=== PATIENT | male | born 1975 | race Caucasian/White ===

== ENCOUNTER 2017-03-24 09:32 | Emergency (ER) | payer MEDICAID ==
[2017-03-24 09:37] VITALS: BP 107/80; PULSE 90; RESP 16; TEMP 97.5; O2SAT 98
[2017-03-24] MEDS ORDERED: CARBAMIDE PEROXIDE 15 ML BOTTLE EACHEAR ONE (10:03)
[2017-03-24] MEDS ORDERED: IBUPROFEN 600 MG TAB PO ONE (10:04)
[2017-03-24] MEDS ORDERED: HYDROCODONE/APAP 5/325 TAB PO ONE (10:05)
--- NOTE | 2017-03-24 10:07 | EDPHY ---
H & P Time Seen by Provider: 03/24/17 09:39 HPI/ROS: CHIEF COMPLAINT: Right ear pain HISTORY OF PRESENT ILLNESS: 41-year-old male presents emergency department complaining of right ear pain that started yesterday. Patient reports the pain is a deep, constant. He reports it is a 5/10. Patient denies nasal congestion , sore throat,, fevers or chills. He denies dizziness or lightheadedness. Patient denies previous ear pain. Patient reports he took Tylenol this morning with no relief. He denies other complaints. Smoking Status: Current every day smoker Physical Exam: General: Alert, nontoxic. ENT: Tympanic membranes obscured with cerumen, external auditory canal, external ear and surrounding soft tissue including over the mastoid unremarkable. Nasopharynx is not injected, there is no rhinorrhea. Oropharynx without erythema or edema. There is no exudate. No tonsillar hypertrophy. No asymmetry. The uvula is midline. No elevation of tongue. There is no hoarseness. No drooling, patient has good control of their oral secretions. No trismus. No stridor. Cardiac: Regular rate and rhythm. Respiratory: Lungs clear to auscultation bilaterally. Neurological: no meningismus. Skin: No rashes. Constitutional: Initial Vital Signs Temperature (C) 36.4 C 03/24/17 09:34 Heart Rate 90 03/24/17 09:34 Respiratory Rate 16 03/24/17 09:34 Blood Pressure 107/80 03/24/17 09:34 O2 Sat (%) 98 03/24/17 09:34 O2 Delivery Mode Room Air Allergies/Adverse Reactions: No Known Allergies Allergy (Unverified 03/24/17 09:33) Home Medications: Medication Instructions Recorded NK [No Known Home Meds] 03/24/17 MDM/Departure - MDM Procedures: Procedure: Cerumen removal. After a physical exam was performed cerumen needed to be removed from the patient's ear canal. The indication of the procedure was cerumen impaction and inability to complete the ear exam. The procedure was performed with an ear curette. The patient tolerated the procedure well. The procedure was performed by myself. Medications Given: Discontinued Medications Hydrocodone Bitart/Acetaminophen ([place] 5/325) 1 tab PO EDNOW ONE Stop: 03/24/17 10:06 Last Admin: 03/24/17 10:16 Dose: 1 tab Carbamide Peroxide (Debrox) 5 drop EACHEAR EDNOW ONE Stop: 03/24/17 10:04 Last Admin: 03/24/17 10:39 Dose: 5 drop Ibuprofen (Motrin) 600 mg PO EDNOW ONE Stop: 03/24/17 10:05 Last Admin: 03/24/17 10:16 Dose: 600 mg - Depart Disposition: Home, Routine, Self-Care Clinical Impression: Impacted cerumen Qualifiers: Laterality: bilateral Qualified Code(s): H61.23 - Impacted cerumen, bilateral Condition: Good Instructions: Cerumen Impaction (ED) Additional Instructions: Use hydrogen peroxide mixed with water to clean your ears a couple times per week. Do not use q-tips. Follow up at [facility] for any return of symptoms. Return to the emergency department for any fevers, increased pain, new symptoms or concerns. Referrals: [facility],. [Clinic] - As per Instructions
== END 2017-03-24 12:27 | disposition home or self-care (01) ==
PROC: F09Z3XZ Cerumen Management Treatment using Cerumen Management Equipment (ICD-10-PCS; principal; 2017-03-24)
DX: H61.23 Impacted cerumen, bilateral (principal); F17.200 Nicotine dependence, unspecified, uncomplicated

== ENCOUNTER 2017-03-26 09:25 | Emergency (ER) | payer MEDICAID ==
--- NOTE | 2017-03-26 10:13 | EDPHY ---
H & P Time Seen by Provider: 03/26/17 09:45 HPI/ROS: CHIEF COMPLAINT: Instability HISTORY OF PRESENT ILLNESS: Patient is a 41-year-old man with a history of cerebral palsy and homelessness and alcoholism who comes to the emergency department complaining of difficulty walking with does not enough sleep. He states that this has been present for about a year. He states that when he does not sleep well enough he feels slightly dizzy and has trouble walking straight. He has not seen his primary physician for this. He does not currently have any symptoms. He has normal strength and sensation. He denies chest pain or shortness of breath. He denies palpitations. Denies any recent fever illness. No paresthesias or numbness. No bowel or bladder abnormalities. REVIEW OF SYSTEMS: Constitutional: denies: chills, fever, recent illness, recent injury EENTM: denies: blurred vision, double vision, nose congestion Respiratory: denies: cough, shortness of breath Cardiac: denies: chest pain, irregular heart rate, lightheadedness, palpitations Gastrointestinal/Abdominal: denies: abdominal pain, diarrhea, nausea, vomiting, blood streaked stools Genitourinary: denies: dysuria, frequency, hematuria, pain Musculoskeletal: See HPI Skin: denies: lesions, rash, jaundice, bruising Neurological: denies: headache, numbness, paresthesia, tingling, dizziness, weakness Hematologic/Lymphatic: denies: blood clots, easy bleeding, easy bruising Immunologic/allergic: denies: HIV/AIDS, transplant EXAM: GENERAL: Well-appearing, well-nourished and in no acute distress. HEAD: Atraumatic, normocephalic. EYES: Pupils equal round and reactive to light, extraocular movements intact, sclera anicteric, conjunctiva are normal. ENT: TMs normal, nares patent, oropharynx clear without exudates. Moist mucous membranes. NECK: Normal range of motion, supple without lymphadenopathy or JVD. LUNGS: Breath sounds clear to auscultation bilaterally and equal. No wheezes rales or rhonchi. HEART: Regular rate and rhythm without murmurs, rubs or gallops. ABDOMEN: Soft, nontender, normoactive bowel sounds. No guarding, no rebound. No masses appreciated. BACK: No CVA tenderness, no spinal tenderness, step-offs or deformities EXTREMITIES: Normal range of motion, no pitting or edema. No clubbing or cyanosis. NEUROLOGICAL: Cranial nerves II through XII grossly intact. Normal speech, normal gait. 5/5 strength, normal movement in all extremities, normal sensation , normal reflexes, normal gait PSYCH: Strange affect, normal mood SKIN: Warm, dry, normal turgor, no visible rashes or lesions. Source: Patient Exam Limitations: No limitations - Medical/Surgical History Hx Asthma: No Hx Chronic Respiratory Disease: No Hx Diabetes: No Hx Cardiac Disease: No Hx Renal Disease: No Hx Cirrhosis: No Hx Alcoholism: No Hx HIV/AIDS: No Hx Splenectomy or Spleen Trauma: No Other PMH: spina bifidaq/chiari surg/spinal surgery - Family History Significant Family History: No pertinent family hx - Social History Smoking Status: Current every day smoker Alcohol Use: Heavy Drug Use: None Constitutional: Initial Vital Signs Temperature (C) 36.7 C 03/26/17 09:30 Heart Rate 88 03/26/17 09:30 Respiratory Rate 20 03/26/17 09:30 Blood Pressure 97/57 L 03/26/17 09:30 O2 Sat (%) 97 03/26/17 09:30 O2 Delivery Mode Room Air Allergies/Adverse Reactions: No Known Allergies Allergy (Unverified 03/24/17 09:33) Home Medications: Medication Instructions Recorded NK [No Known Home Meds] 03/24/17 Medical Decision Making ED Course/Re-evaluation: The patient is currently asymptomatic. We discussed follow-up with his primary physician for more appropriate workup. He agrees with this and is eager to leave. Differential Diagnosis: Partial list of the Differential diagnosis considered include but were not limited to; insomnia, alcoholism, spina bifida and although unlikely based on the history and physical exam, I also considered spinal cord infection, tumor, stroke, vertigo. I discussed these differential diagnoses and the plan with the patient as well as the usual and expected course. The patient understands that the diagnosis is provisional and that in medicine we are not always correct and that further workup is often warranted. Usual and customary warnings were given. All of the patient's questions were answered. The patient was instructed to return to the emergency department should the symptoms at all worsen or return, otherwise to followup with the physician as we discussed. Departure - Departure Disposition: Home, Routine, Self-Care Clinical Impression: Alcoholism Condition: Fair Instructions: Alcohol Use Disorder (ED) Referrals: [facility] [Other] - As per Instructions
[2017-03-26 10:19] VITALS: BP 97/57; PULSE 88; RESP 20; TEMP 98.1; O2SAT 97
== END 2017-03-26 09:55 | disposition home or self-care (01) ==
DX: F10.20 Alcohol dependence, uncomplicated (principal); F17.200 Nicotine dependence, unspecified, uncomplicated

== ENCOUNTER 2017-08-10 09:58 | Emergency (ER) | payer MEDICAID, OTHER ==
[~2017-08-10 09:58] MED LIST: predniSONE 20 MG TAB PO SCH
[2017-08-10 10:04] VITALS: RESP 18
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
[2017-08-10 11:17] VITALS: BP 111/65; PULSE 76; TEMP 97.5; O2SAT 98
== END 2017-08-10 11:23 | disposition home or self-care (01) ==
DX: Z76.0 Encounter for issue of repeat prescription (principal); F17.200 Nicotine dependence, unspecified, uncomplicated
CPT/HCPCS: J7512

== ENCOUNTER 2017-09-14 23:37 | Observation (INO) | payer MEDICAID ==
[2017-09-14] MEDS ORDERED: NS 1,000 ML IV ONE (23:41)
--- NOTE | 2017-09-14 23:44 | EDPHY ---
H & P HPI/ROS: HPI CHIEF COMPLAINT: Seizure at [facility]. HISTORY OF PRESENT ILLNESS: This patient is a 42-year-old male, history of spina bifida, states he is not take any daily medications, presents emergency room after he had a 2 minutes witnessed generalized tonic-clonic seizure at the [facility]. 911 was called. EMS found her to be postictal. Also incontinent of urine and stool. Upon arrival to the emergency room the patient is alert and oriented GCS 15, he did fall. He has been placed in a cervical collar. His complaint is pain all over. Additionally complains of a headache. He denies chest pain. EMS reports that he drinks alcohol. Last drink earlier today. Reported to me by EMS that he has never had a seizure. Past Medical History: Spina bifida, chiari, ?Alcoholism. Past Surgical History: No recent surgery Social History: Alcohol use. Homeless. Denies illicit drugs. Family History: Noncontributory ROS REVIEW OF SYSTEMS: A comprehensive 10 point review of systems is otherwise negative aside from elements mentioned in the history of present illness. Exam Constitutional alert and oriented, GCS 15, no signs of trauma on exam, triage nursing summary reviewed, vital signs reviewed, awake/alert. Eyes normal conjunctivae and sclera, EOMI, PERRLA. HENT head/neck in cervical collar no midline cervical spine pain, normal inspection, atraumatic, moist mucus membranes, no epistaxis, neck supple/ no meningismus, no raccoon eyes. Respiratory clear to auscultation bilaterally, normal breath sounds, no respiratory distress, no wheezing. Cardiovascular rate normal, regular rhythm, no murmur, no edema, distal pulses normal. Gastrointestinal soft, non-tender, no rebound, no guarding, normal bowel sounds, no distension, no pulsatile mass. Genitourinary no CVA tenderness. Musculoskeletal no midline vertebral tenderness, full range of motion, no calf swelling, no tenderness of extremities, no meningismus, good pulses, neurovascularly intact. Skin pink, warm, & dry, no rash, skin atraumatic. Neurologic awake, alert and oriented x 3, AAOx3, moves all 4 extremities equally, motor intact, sensory intact, CN II-XII intact, normal cerebellar, normal vision, normal speech. Incontinent of urine and stool. Psychiatric normal mood/affect. Heme/Lymph/Immune no lymphadenopathy. Differential Diagnosis: Includes but is not limited to in a particular order seizure, breakthrough seizure, alcohol withdrawal, alcohol intoxication, electrolyte disturbance, intracranial bleed, traumatic injury of the skull neck from falling after seizure. Medical Decision Making: Plan for this patient IV establishment, IV fluid bolus , check basic blood work, CT head, CT cervical spine, check drug screen, check alcohol level. Re-evaluate. Monitor closely for further seizure activity. Re-evaluation: CT scan of the Head w/o. The results of the study are this shows a right occipital skull fracture. Additionally most likely Chiari malformation. The study was read by Dr. Junior I viewed the images myself on the PACS system. ED CT cervical spine without contrast shows: Negative for acute fracture. 1225AM: Spoke with Trauma surgery Dr. Jaquez agrees to admit this patient for observation overnight for right occipital skull fracture. No bleed on the CT scan. 1251AM: Additionally I spoke with Dr. Jesus Cantu with Neurosurgery about this patient skull fracture no acute neurosurgical intervention needed this time. 1252: I do feel this patient should be admitted for observation overnight as the patient is homeless has chronic medical problems including spina bifida, QR malformation low neurological function and now has a right occipital skull fracture after seizure. It is unclear to me exactly what caused the seizure it was thought that this was due to alcohol withdrawal. However the patient does not appear to be in alcohol withdrawal. He is not tachycardic is not tremulous he is not hypertensive. Alcohol level 0. Will observe overnight. I have cleared his cervical spine collar he not altered and he has no acute fracture on his cervical spine. 0104: Additionally I consult the hospitalist service Dr. Islas For Consult for Management/Seizure workup. EKG interpretation by me on record in [employer] system. Impression time of EKG 0013. Sinus tachycardia rate of 109. No acute ischemic change appreciated. ED x-ray chest one view: Negative for acute cardiopulmonary disease. Source: Patient, EMS - Medical/Surgical History Hx Asthma: No Hx Chronic Respiratory Disease: No Hx Diabetes: No Hx Cardiac Disease: No Hx Renal Disease: No Hx Cirrhosis: No Hx Alcoholism: No Hx HIV/AIDS: No Hx Splenectomy or Spleen Trauma: No Other PMH: spina bifidaq/chiari surg/spinal surgery - Social History Smoking Status: Current every day smoker Constitutional: Initial Vital Signs Temperature (C) 36.7 C 11/18/17 23:42 Heart Rate 113 H 09/14/17 23:42 Respiratory Rate 17 09/14/17 23:42 Blood Pressure 106/77 09/14/17 23:42 O2 Sat (%) 95 09/14/17 23:42 O2 Delivery Mode Room Air Allergies/Adverse Reactions: No Known Allergies Allergy (Verified 08/10/17 10:01) Home Medications: Medication Instructions Recorded NK [No Known Home Meds] 09/15/17 Medical Decision Making - Diagnostics Imaging Results: Imaging Impressions Chest X-Ray 09/14/17 23:41 Impression: No evidence for acute cardiopulmonary abnormality. - Data Points Laboratory Results: Laboratory Results 09/14/17 23:30 09/14/17 23:30 Medications Given: Discontinued Medications Hydrocodone Bitart/Acetaminophen ([place] 5/325) 1 - 2 tab PO Q6HRS PRN PRN Reason: Pain, Moderate Able to Take PO Stop: 09/25/17 01:09 Last Admin: 09/15/17 01:26 Dose: 2 tab Hydromorphone HCl (Dilaudid) 4 mg PO Q4HRS PRN PRN Reason: Pain, Severe Able to Take PO Stop: 09/25/17 08:59 Last Admin: 09/15/17 09:26 Dose: 4 mg Sodium Chloride (Ns) 1,000 mls @ 0 mls/hr IV ONCE ONE; Wide Open PRN Reason: Protocol Stop: 09/14/17 23:42 Last Admin: 09/15/17 00:14 Dose: 1,000 mls Thiamine HCl 500 mg/ Sodium (Chloride) 105 mls @ 210 mls/hr IV DAILY AMANUEL Stop: 09/18/17 03:29 Last Admin: 09/15/17 09:29 Dose: Not Given Lorazepam (Ativan) 1 mg PO ONCE ONE Stop: 09/15/17 01:10 Last Admin: 09/15/17 01:20 Dose: 1 mg Lorazepam (Ativan) 1 - 2 mg PO Q4 PRN PRN Reason: Anxiety, Able to Take PO Stop: 03/14/18 01:12 Last Admin: 09/15/17 05:41 Dose: 1 mg Nicotine Polacrilex (Nicorette) 2 mg B Q1 PRN PRN Reason: NICOTINE WITHDRAWAL Stop: 03/14/18 01:50 Last Admin: 09/15/17 09:27 Dose: 2 mg Senna/Docusate Sodium (Senokot-S) 1 tab PO BID AMANUEL Stop: 03/14/18 09:14 Last Admin: 09/15/17 09:29 Dose: Not Given Departure - Departure Disposition: [facility] Clinical Impression: Seizure Skull fracture Qualifiers: Encounter type: initial encounter Skull bone/location: occipital bone Fracture type: closed Occipital fracture type: unspecified fracture of occiput Laterality : right Qualified Code(s): S02.119A - Unspecified fracture of occiput, initial encounter for closed fracture Condition: Fair
[2017-09-14 23:50] LABS: % IMMATURE GRANULYOCYTES 0.8 % (0.0-1.1); ABSOLUTE IMMATURE GRANULOCYTES 0.12 10^3/uL (0.00-0.10); ADD DIFF? NO; ADD MORPH? NO; ADD SCAN? NO; ATYPICAL LYMPHOCYTE FLAG 10 (0-99); FRAGMENT RBC FLAG 0 (0-99); HEMATOCRIT 39.9 % (40.0-51.0); HEMOGLOBIN 13.6 g/dL (13.7-17.5); LEFT SHIFT FLG 0 (0-99); LIPEMIA HEMOLYSIS FLAG 90 (0-99); MEAN CELL HEMOGLOBIN 31.1 pg (27.9-34.1); MEAN CELL HEMOGLOBIN CONCENTR. 34.1 g/dL (32.4-36.7); MEAN CELL VOLUME 91.3 fL (81.5-99.8); MEAN PLATELET VOLUME 11.2 fL (8.7-11.7); PLATELET CLUMPS FLAG 10 (0-99); PLATELET COUNT 241 10^3/uL (150-400); RED BLOOD CELL COUNT 4.37 10^6/uL (4.40-6.38); RED CELL DISTRIBUTION WIDTH 12.6 % (11.5-15.2)
[2017-09-15 00:13] LABS: ANION GAP 11 mEq/L (8-16); CALCIUM 9.6 mg/dL (8.5-10.4); CARBON DIOXIDE 27 mEq/l (22-31); CHLORIDE 105 mEq/L (97-110); CREATININE 0.8 mg/dL (0.7-1.3); ETHANOL SERUM < 10 mg/dL (0-10); GLOMERULAR FILTRATION RATE > 60; GLUCOSE 108 mg/dL (70-100); POTASSIUM 4.1 mEq/L (3.5-5.2); SODIUM 143 mEq/L (134-144)
--- NOTE | 2017-09-15 00:15 | CPEKG ---
Heart Rate: 109 RR Interval: 550 P-R Interval: 136 QRSD Interval: 96 QT Interval: 324 QTC Interval: 437 P [place]: 77 QRS [place]: 91 T Wave [place]: 49 EKG Severity - BORDERLINE ECG - EKG Impression: SINUS TACHYCARDIA EKG Impression: BORDERLINE RIGHT AXIS DEVIATION EKG Impression: LOW VOLTAGE IN FRONTAL LEADS Electronically Signed By: Jonathan Morales 15-Sep-2017 07:06:24
[2017-09-15 00:18] LABS: COLOR YELLOW; LEUKOCYTE ESTERASE,URINE NEGATIVE (NEGATIVE); NITRITE,URINE NEGATIVE (NEGATIVE)
[2017-09-15 00:24] LABS: TROPONIN I < 0.012 ng/mL (0.000-0.034)
[2017-09-15] MEDS ORDERED: LORazepam 1 MG TAB PO ONE (01:09)
[2017-09-15] MEDS ORDERED: HYDROCODONE/APAP 5/325 TAB PO PRN (01:10)
[2017-09-15] MEDS ORDERED: ACETAMINOPHEN 325 MG TAB PO PRN (01:10)
[2017-09-15] MEDS ORDERED: ONDANSETRON DISINTEGRATING 4 MG TAB PO PRN (01:10)
[2017-09-15] MEDS ORDERED: LORazepam 1 MG TAB PO PRN ×2 (01:13→01:29)
[2017-09-15] MEDS ORDERED: LORazepam 2 MG/ML INJ ONE (01:15)
[2017-09-15] MEDS ORDERED: LORazepam 1 MG TAB ONE (01:19)
--- NOTE | 2017-09-15 03:15 | GHP ---
[f rep st] PREOP HISTORY AND PHYSICAL DATE OF ADMISSION: 09/15/2017 REASON FOR ADMISSION: Skull fracture. HISTORY OF PRESENT ILLNESS: 42-year-old homeless male with a significant history for alcohol abuse, brought in by EMS after a witnessed seizure activity at the [facility] with subsequent fall onto his occiput. The patient was noted to be incontinent of stool and feces. On ED arrival he was found to be alert with generalized bodily complaints. No further seizure activity was noted nor treated. Workup disclosed a nondisplaced occipital skull fracture with an old Chiari malformation. Per review of ED records, he has a notable history for cerebral palsy as well. The patient denies any prior history of seizure disorder. He reports not having drank for multiple days. His alcohol level was negligible on arrival. There are no documented reports of [facility], through his 3 prior visits over the past year. PAST MEDICAL HISTORY: Cerebral palsy per hospital records, alcohol abuse. PAST SURGICAL HISTORY: Laparoscopic Guy fundoplication, spina bifida repair , prior craniotomy. MEDICATIONS: Denies. ALLERGIES: Denies. SOCIAL HISTORY: Notable for alcohol. He denies the use of illicit drugs. He reports that he worked at [employer] at 1 point. REVIEW OF SYSTEMS: Negative on a 10-point review other than above current complaints. PHYSICAL EXAMINATION: VITAL SIGNS: Temperature 36.7, blood pressure 110/80, pulse 98, respirations 18. GENERAL: The patient is alert, tangential, otherwise polite enough. HEENT: Notable diffuse occipital skull discomfort without visible deformity. Pupils are equally round and reactive to light and accommodation. Extraocular muscles are intact. Tympanic membranes are clear bilaterally. Nares are clear bilaterally. No facial step-offs, deformities, or tenderness. Cervical spine nontender. Trachea midline without crepitus. HEART: Regular without murmurs. LUNGS: Clear bilaterally. ABDOMEN: Soft. Well-healed laparoscopic trocar site incisions, otherwise nontender. PELVIS: Nontender. Normal bilateral upper and lower extremities without step-offs, deformities, or abrasions. Well-healed lumbar spine incision. NEUROLOGIC: Alert. Speech with normal mahi. LABORATORIES: White count 15, hemoglobin 14, platelets 240. Electrolytes within reference range. Urinalysis normal. Tox screen negative. Alcohol normal. CT of the head and neck with a nondisplaced occipital fracture. No intracranial bleed present. Chiari malformation present with old surgical changes. No acute spinal fractures. Old C7 compression fracture present. IMPRESSION: 1. Homeless male with a significant history for alcohol abuse. 2. Witnessed seizure without known antecedent seizure history. 3. Nondisplaced occipital skull fracture. PLAN: 1. The patient is being admitted for overnight observation. Given his lack of prior history of a known seizure disorder, and the patient is currently not intoxicated, will request hospitalist consultation regarding any further necessary seizure workup measures. 2. Images were reviewed by neurosurgical service with no further specific recommendation for his occipital skull fracture. He will assess in am. /[id number]/MODL MTDD
[2017-09-15] MEDS ORDERED: NS 1,000 ML IV SCH (03:30)
--- NOTE | 2017-09-15 05:20 | GCON ---
[f rep st] CONSULTATION Date of consultation: 09/15/2017 PCP: Patient is without. REASON FOR CONSULTATION: Seizures. SOURCE: Patient is minimally cooperative with interview. Does not want to be asked any questions and rolls over, and goes back to bed. Remainder of the information obtained by a discussion with ED provider and review of EMR. CHIEF COMPLAINT: Seizure and fall. HISTORY OF PRESENT ILLNESS: This is a 42-year-old gentleman with a past medical history of alcohol abuse, spina bifida, and history of Chiari malformation with repair, who presents to the emergency department via [facility] after patient had a witnessed tonic-clonic seizure, followed by a fall where he hit his head. The patient's seizure activity is reported to have lasted approximately 2 minutes. Patient denies any previous history of seizure and documentation also without notation of this. The patient denies any pain and then rolls over and tries to go back to bed, and does not cooperate any further. On the medical floor, patient refused to have any vital signs checked, monitors placed, or participate in admission process at all. He had demanded from SHANA cardozo and Kierra, which he received and went to sleep. REVIEW OF SYSTEMS: Unable to obtain secondary to patient's lack of cooperation. ALLERGIES: No known drug allergies. HOME MEDICATIONS: None. PAST MEDICAL HISTORY: Significant for alcohol disorder, spina bifida, Chiari malformation. PAST SURGICAL HISTORY: Significant for a lap Guy fundoplication, spina bifida repair, and a prior craniotomy for Chiari malformation repair. FAMILY HISTORY: Unable to obtain secondary to patient's lack of cooperation. SOCIAL HISTORY: The patient does tell me that he did have a little bit to drink , a sip of alcohol, on day prior to admission, but nothing compared to what he takes on a daily basis. He is residing currently in a homeless [facility]. He denied any illicit drugs to previous provider. PHYSICAL EXAM: VITALS: On arrival, blood pressure 106/77, heart rate 113, respiratory rate 17, O2 saturation 95% on room air, temperature of 36.7. Current blood pressure 110/82, heart rate 114, respiratory rate 16, O2 saturation 97% on room air. GENERAL: No acute distress. Patient appears older than stated age. He is disheveled and sleeping. Opens 1 eye and rolls over, and goes to sleep. HEAD: Normocephalic, atraumatic-appearing. ENT: Mucous membranes appear slightly dry. No nasal discharge. NECK: Supple. Trachea midline. CV: Regular rate and rhythm. No murmurs, rubs, or gallops appreciated. RESPIRATORY: Unlabored breathing. Lungs are clear to auscultation bilaterally. Patient does have a persistent nonproductive cough during the interview. ABDOMEN: Positive bowel sounds. Soft, nontender to palpation. No rebound, guarding, or masses appreciated. : No apparent suprapubic tenderness to palpation. No Louie in place. MUSCULOSKELETAL: Limited secondary to patient's cooperation. He does wiggle his lower extremities and hands. NEUROLOGIC: Cranial nerves 2 through 12 unable to assess secondary to patient's cooperation, but denies any sensory deficits. PSYCH: Patient with limited cooperativity, , but is not currently agitated or restless. He was sleeping. LABORATORY STUDIES: 1. WBC is 15.5, H and H 13.6 and 39.9, platelet count is 241, MCV 91.3. 2. Sodium is 143, potassium 4.1, chloride 105, CO2 is 27, BUN 14, creatinine is 0.8, GFR greater than 60, glucose 108, calcium 9.6. Troponin is negative. UA: Specific gravity 1.014, pH of 6, negative otherwise. 3. Alcohol level less than 10. Otherwise, urine tox is negative. 4. Chest x-ray: Image reviewed myself. Report is pending. Nothing acute. 5. CT head, without contrast, showing postsurgical changes from prior Chiari malformation surgery with defect in the cerebral bone at the foramen magnum and cerebellum, extending below the level of foramen magnum. 6. Nondisplaced fracture of the right cerebral bone without any evidence of intracranial hemorrhage. 7. Possible fullness in the pineal region and midbrain, uncertain clinical significance. 8. CT cervical spine. Negative for any evidence of acute cervical spine fracture, incomplete posterior arch of C1 that could be due to congenital or postsurgical old mild compression fracture at C7. 9. Unable to pull up EKG on Trace Master. Preliminary report showing sinus tachycardia, borderline right axis deviation, low voltage in frontal leads. ASSESSMENT/PLAN: A 42-year-old gentleman with past medical history significant for alcohol dependence, Chiari malformation, status post repair, and history of spina bifida, status post repair, who presents to the emergency department via EMS following seizure and a fall. 1. Seizure. Definitely concerning for alcohol withdrawal. Patient reports that he has had significantly decreased amount of alcohol in the last several days, with last intake being "a sip" the day prior to arrival. The patient's alcohol level is negative. The patient will be placed on CIWA protocols with seizure prophylaxis. We will not order EEG at this time, as patient is being very uncooperative and we will plan to have day doctor discuss with the patient , as he may not be cooperative with the EEG order either. 2. History of fall. On bed alarms and fall precautions. 3. Occipital skull fracture, nonoperative. We will continue to monitor for any changes in symptoms. 4. Alcohol withdrawal. Patient placed on CIWA protocol and p.r.n. Ativan. The patient's vital signs at this time are stable. 5. Old C7 compression fracture. 6. Systemic inflammatory response syndrome and leukocytosis, likely related to patient's recent events with seizure and fall. We will plan to give IV fluid hydration, if patient will allow, which at this time, he is not, and repeat a CBC and CMP in the morning, if the patient will allow. 7. Anemia, likely some component of macrocytosis with a history of chronic alcohol dependence. Patient will be given thiamine. No evidence of active bleeding at this time. 8. Fluid, electrolytes, and nutrition. Diet as tolerated. Electrolyte replacement p.r.n. 9. Cor. Full. DISPOSITION: Patient admitted to observation on medical floor, as per Dr. Jaquez. CODE STATUS: Patient not willing to discuss at this time. We will leave as full. Thank you for this consultation. We will continue to follow along with you and further evaluate the patient in the morning, and see if he will be any more cooperative and consider evaluation, as he denies any previous history of withdrawal seizures. /[id number]/MODL MTDD
[2017-09-15] MEDS: THIAMINE HCL 500 MG in NS 100 ML IV SCH ×2 (05:42→09:29)
[2017-09-15] MEDS: NICOTINE POLACRILEX 2 MG GUM B PRN ×3 (05:47→09:27)
[2017-09-15 07:46] VITALS: BP 116/81; PULSE 106; RESP 16; TEMP 98.6; O2SAT 97
--- NOTE | 2017-09-15 08:50 | SOAPPROG ---
SOAP Progress Note Assessment/Plan: Assessment: 42 yo M with right occipital non-displaced skull fracture after seizure Plan: full consult dictated. No treatment needed for skull fracture will sign off , please call with neuro changes patient does not need follow up appointment seen by DR Cantu 09/15/17 08:48 Subjective: see dictated consult Objective: Vital Signs Temp Pulse Resp BP Pulse Ox 37.0 C 106 H 16 116/81 H 97 09/15/17 07:42 09/15/17 07:42 09/15/17 07:42 09/15/17 07:42 09/15/17 07:42 09/14/17 09/15/17 09/16/17 05:59 05:59 05:59 Intake Total 1165 Balance 1165 GCS-15 ICD10 Worksheet Patient Problems: Problems Problem Status Onset Seizure Acute Skull fracture Acute
[2017-09-15] MEDS ORDERED: HYDROmorphONE/DILAUDID 4 MG TAB PO PRN (09:00)
--- NOTE | 2017-09-15 09:09 | TRAUMAPN ---
- Problem/Surgery Performed (1) Syncope and collapse Assessment/Plan: bystanders report a seizure/patient currently denying drug or alcohol use (drug screen was negative) patient reports feeling ill with a headache prior to the event-other causes of syncope should be considered (2) History of Chiari malformation Assessment/Plan: prior craniotomy at [facility] (3) Spina bifida Qualifiers: Spinal region: unspecified (4) Skull fracture Assessment/Plan: patient with uncomplicated skull fracture/neurosurgery consult pending Qualifiers: Encounter type: initial encounter Skull bone/location: occipital bone Fracture type: closed Occipital fracture type: unspecified fracture of occiput Laterality: right Qualified Code(s): S02.119A - Unspecified fracture of occiput, initial encounter for closed fracture Assessment/Plan: s/p fall with uncomplicated skull fracture/syncope vs. seizure as eitiology no other injury identified on tertiary exam Hospitalist consult appreciated Subjective: c/o headache prior to fall yesterday/has never had a seizure main complaint today is headache Objective: Vital Signs Temp Pulse Resp BP Pulse Ox 37.0 C 106 H 16 116/81 H 97 09/15/17 07:42 09/15/17 07:42 09/15/17 07:42 09/15/17 07:42 09/15/17 07:42 09/14/17 09/15/17 09/16/17 05:59 05:59 05:59 Intake Total 1165 Balance 1165 - C-Spine Clearance Cervical Spine Cleared: Yes Provider who Cleared Cervical Spine: Leonid Physical Exam - Physical Exam General Appearance: moderate distress, other (thin chronically ill appearing male sitting on the floor of his room with his legs crossed) EENT: PERRL/EOMI Neck: non-tender, full range of motion, supple Respiratory: chest non-tender, lungs clear, normal breath sounds Cardiac/Chest: regular rate, rhythm Abdomen: normal bowel sounds, non-tender, soft Male Genitalia: deferred Rectal: deferred Back: Normal inspection Skin: warm/dry Extremities: normal range of motion, non-tender Neuro/Psych: oriented x 3, other (agitated/angry/does not make eye contact during conversation)
[2017-09-15] MEDS ORDERED: SENNOSIDES/DOCUSATE SODIUM TAB PO SCH (09:15)
--- NOTE | 2017-09-15 09:21 | GCON ---
[f rep st] CONSULTATION NEUROSURGICAL CONSULTATION CHIEF COMPLAINT: Headache. HISTORY OF PRESENT ILLNESS: Mr. Mauro is a 42-year-old male with a history of significant alcohol abuse. He had a witnessed seizure at a homeless half-way and a subsequent fall. He was evaluated in the emergency department and a head CT showed a right occipital skull fracture and neurosurgical consultation was requested. The patient currently denies any headaches. He denies any nausea or vomiting. Most of his medical history comes from the patient's chart as he is being verbally aggressive with the nurses this morning and noncompliant. PAST MEDICAL HISTORY: 1. Cerebral palsy. 2. Alcohol abuse. PAST SURGICAL HISTORY: 1. Chiari decompression. 2. Spina bifida repair. 3. Laparoscopic Guy fundoplication. MEDICATIONS PRIOR TO ADMISSION: None. ALLERGIES: No known drug allergies. FAMILY HISTORY: Unobtainable. SOCIAL HISTORY: The patient is homeless. He has a history of alcohol abuse. Denies drug use. REVIEW OF SYSTEMS: Negative. PHYSICAL EXAMINATION: GENERAL: Patient is a 42-year-old male sitting on the edge of the bed. He is agitated and verbally abusive toward the nurses. HEENT : Pupils equal, round, reactive to light. Extraocular motions are intact. There is no evidence of facial droop. EXTREMITIES: He moves all extremities x4. NEUROLOGIC: His sensation is grossly intact. Unable to test deep tendon reflexes because the patient is noncompliant. DIAGNOSTIC STUDIES: The head CT without contrast shows a nondisplaced right occipital skull fracture. There is no evidence of acute hemorrhage. There are postoperative changes from his previous Chiari decompression. IMPRESSION: This is a 42-year-old male with a witnessed seizure and has a right occipital nondisplaced linear skull fracture. He is neurologically intact. PLAN: The above is discussed in detail with the patient. At this point in time , there is no further treatment required for his nondisplaced skull fracture. He has no evidence of any acute hemorrhage. He can be discharged when he is cleared by trauma. He does not need to return for a followup appointment. At this point in time, we will sign off. Please call with any neurological changes. NEUROSURGERY STAFF: I have seen the patient and agree with the above note. He does not need any further neurosurgical followup. Terry Cantu MD [facility] /[id number]/MODL MTDD
--- NOTE | 2017-09-15 11:31 | ASMTCMCOM ---
CM Note CM Note Notes: Patient left AMA. [facility] bed reserved for him and shoes given from Case Management closet. Encouraged patient to stay, but he refused. Date Signed: 09/15/2017 11:30 AM Electronically Signed By:Winifred Mccullough RN
--- NOTE | 2017-09-15 12:56 | ASDISCHSUM ---
Discharge Information Plan Status:Homeless/Half-Way Medically Cleared to Leave: Discharge Date:09/15/2017 11:20 AM CM D/C Disposition:Against Medical Advice ADT D/C Disposition:Against Medical Advice Projected Discharge Date:09/15/2017 11:20 AM Transportation at D/C:Self Discharge Delay Reason: Follow-Up Date:09/15/2017 11:20 AM Discharge Slot: Final Diagnosis: Placement Information Patient Contact Information Contact Name:CARLYLE Relationship:Other Address: Work Phone: [facility] Phone: State/Zip Code: Email: Financial Information Financial Class: Primary Plan Desc:[employer] Primary Plan Number:[id number] Secondary Plan Desc: Secondary Plan Number: Assessment Information [facility] CM Progress Note CM Note CM Note Notes: Patient left AMA. Half-Way bed reserved for him and shoes given from Case Management closet. Encouraged patient to stay, but he refused. Date Signed: 09/15/2017 11:30 AM Electronically Signed By:Winifred Mccullough RN Intervention Information
--- NOTE | 2017-09-15 14:35 | PDDCSUM ---
Discharge Summary Discharge Summary: This is a discharge against medical advice, patient left prior to being seen by this provider. 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
== END 2017-09-15 11:20 | disposition left against medical advice (07) ==
LOC: EDUNIT# → F3N 09-15 01:35
PROVIDERS: ADMIT Surgery; ATTEND Surgery
DX: F10.239 Alcohol dependence with withdrawal, unspecified (principal); R56.9 Unspecified convulsions; S02.119A Unspecified fracture of occiput, initial encounter for closed fracture; M48.52XD Collapsed vertebra, not elsewhere classified, cervical region, subsequent encounter for fracture with routine healing; D64.9 Anemia, unspecified; Z59.0 Homelessness
CPT/HCPCS: 70450; 71010; 72125; 92523; 93005; 96360; 97161; 97165; 99285; G0378; 80305; G0480; J2060; J3411

== ENCOUNTER 2017-09-16 00:19 | Inpatient (IN) | payer MEDICAID ==
[2017-09-16] MEDS ORDERED: NS 1,000 ML IV ONE (00:36)
[2017-09-16 00:43] VITALS: RESP 18
--- NOTE | 2017-09-16 00:43 | EDPHY ---
H & P HPI/ROS: HPI CHIEF COMPLAINT: Headache, abdominal pain, confusion, generalized weakness HISTORY OF PRESENT ILLNESS: This patient is a 42-year-old male, who I in fact saw yesterday after he had a witnessed seizure at the homeless correction and sustained an occipital skull fracture. He was admitted to the hospital under the trauma service he subsequently left against medical advice at some point today. He now presents back from the homeless correction by EMS. They were initially called for possible foreign body ingestion. Reported that he may have ingested a "battery powered snake." However the patient cannot confirm this. He states when I asked him did he swallow anything he goes "I do not know "when I specifically asked him about of battery or battery powered snake he goes "I do not know" However the patient continues to have a multitude of complaints which includes headache, abdominal pain, shortness of breath. Of note here in the emergency room is very poor historian. He appears dehydrated. He denies drinking alcohol doing drugs this evening. His main complaint is a headache and abdominal pain. Past Medical History: Cerebral palsy, spina bifida, Arnold-Chiari malformation , recent hospitalization for Occipital Skull Fracture. Past Surgical History: Arnold-Chairi Malformation. Cranial surgery, neck surgery. Abdominal Surgery (epigastric region with clips) Unsure what abdominal sx. Social History: Homeless, resides at homeless correction. History of alcohol use. Family History: Noncontributory ROS REVIEW OF SYSTEMS: A comprehensive 10 point review of systems is otherwise negative aside from elements mentioned in the history of present illness. Exam Constitutional appears dehydrated, chronically ill, thin-appearing triage nursing summary reviewed, vital signs reviewed, awake/alert. Eyes normal conjunctivae and sclera, EOMI, PERRLA. . Discharge bilateral medial canthus of his eyes. Conjunctiva is injected red. HENT normal inspection, atraumatic, moist mucus membranes, no epistaxis, neck supple/ no meningismus, no raccoon eyes. Respiratory clear to auscultation bilaterally, normal breath sounds, no respiratory distress, no wheezing. Cardiovascular rate normal, regular rhythm, no murmur, no edema, distal pulses normal. Gastrointestinal soft, non-tender, no rebound, no guarding, normal bowel sounds, no distension, no pulsatile mass. Genitourinary no CVA tenderness. Musculoskeletal no midline vertebral tenderness, full range of motion, no calf swelling, no tenderness of extremities, no meningismus, good pulses, neurovascularly intact. Skin pink, warm, & dry, no rash, skin atraumatic. Neurologic awake, alert and oriented x 3, AAOx3, moves all 4 extremities equally, motor intact, sensory intact, CN II-XII intact, normal cerebellar, normal vision, normal speech. Psychiatric normal mood/affect. Heme/Lymph/Immune no lymphadenopathy. Differential Diagnosis: Includes but is not limited to in a particular order subdural, intracranial bleed, epidural, electrolyte disturbance, acute drug intoxication, alcohol intoxication, cardiac arrhythmia Medical Decision Making: Plan for this patient CT head without contrast given headache and recent skull fracture to Evaluate for a subdural epidural. Additionally will obtain x-rays of his chest and and KUB of his abdomen make sure there is no foreign body specifically a battery powered snake or a battery ingestion. Or any other foreign body. Check electrolytes. Gentle IV hydration. Alcohol level, drug screen. EKG. Re-evaluation: CT scan of the head without IV contrast The results of the study are negative for acute bleed. Stable occipital fracture. The study was read by Dr. Mauro. I viewed the images myself on the PACS system. EKG interpretation by me on record in [facility] system. Impression time of EKG 1:20 a.m., sinus rhythm rate of 98 I do not appreciate any acute ischemia on this EKG. This EKG was performed without any chest pain or shortness of breath. 0133AM: X-ray and KUB are reviewed. This shows no evidence of foreign body. Normal bowel gas pattern. Specifically I do not appreciate a battery or other radiopaque foreign body. There does appear to be surgical clips the epigastric region overlying the gastric bubble. 0634: Patient is slept here throughout the evening. He has no complaints at this time I did re-evaluate him. He ambulated well to the bathroom. His workup for ingested foreign bodies unremarkable. X-rays have been reviewed I do not appreciate foreign body. Blood work is reassuring. He had a repeat CT scan of his head for trauma. I do not appreciate any new bleed. 0644: Patient up ambulating to the bathroom with steady gait. He has no focal medical complaints at this time. He slept most of the night in the emergency room. Vital signs are stable. Workup has been reviewed. I have answered all his questions. He safe for discharge to a correction. Source: Patient, EMS - Medical/Surgical History Hx Asthma: No Hx Chronic Respiratory Disease: No Hx Diabetes: No Hx Cardiac Disease: No Hx Renal Disease: No Hx Cirrhosis: No Hx Alcoholism: No Hx HIV/AIDS: No Hx Splenectomy or Spleen Trauma: No Other PMH: spina bifidaq/chiari surg/spinal surgery - Social History Smoking Status: Current every day smoker Constitutional: Initial Vital Signs Temperature (C) 36.8 C 09/16/17 00:39 Heart Rate 89 09/16/17 00:39 Respiratory Rate 18 09/16/17 00:39 Blood Pressure 112/70 09/16/17 00:39 O2 Sat (%) 94 09/16/17 00:39 O2 Delivery Mode Room Air Allergies/Adverse Reactions: No Known Allergies Allergy (Verified 08/10/17 10:01) Home Medications: Medication Instructions Recorded NK [No Known Home Meds] 09/15/17 Medical Decision Making - Data Points Laboratory Results: Laboratory Results 09/16/17 00:43 09/16/17 00:43 09/16/17 09/16/17 09/16/17 00:43 00:43 00:43 WBC 10.79 10^3/uL H 10^3/uL (3.80-9.50) RBC 4.44 10^6/uL 10^6/uL (4.40-6.38) Hgb 13.9 g/dL g/dL (13.7-17.5) POC Hgb Hct 40.9 % % (40.0-51.0) POC Hct MCV 92.1 fL fL (81.5-99.8) MCH 31.3 pg pg (27.9-34.1) MCHC 34.0 g/dL g/dL (32.4-36.7) RDW 12.5 % % (11.5-15.2) Plt Count 206 10^3/uL 10^3/uL (150-400) MPV 11.5 fL fL (8.7-11.7) Neut % (Auto) 64.5 % % (39.3-74.2) Lymph % (Auto) 23.4 % % (15.0-45.0) [place] % (Auto) 7.1 % % (4.5-13.0) Eos % (Auto) 3.2 % % (0.6-7.6) Baso % (Auto) 0.9 % % (0.3-1.7) Nucleat RBC Rel Count 0.0 % % (0.0-0.2) Absolute Neuts (auto) 6.94 10^3/uL H 10^3/uL (1.70-6.50) Absolute Lymphs (auto) 2.53 10^3/uL 10^3/uL (1.00-3.00) Absolute Monos (auto) 0.77 10^3/uL 10^3/uL (0.30-0.80) Absolute Eos (auto) 0.35 10^3/uL 10^3/uL (0.03-0.40) Absolute Basos (auto) 0.10 10^3/uL 10^3/uL (0.02-0.10) Absolute Nucleated RBC 0.00 10^3/uL 10^3/uL (0-0.01) Immature Gran % 0.9 % % (0.0-1.1) Immature Gran # 0.10 10^3/uL 10^3/uL (0.00-0.10) PT 13.6 SEC SEC (12.0-15.0) INR 1.05 (0.83-1.16) APTT 30.2 SEC SEC (23.0-38.0) VBG Lactic Acid POC Sodium Sodium 146 mEq/L H mEq/L (134-144) POC Potassium Potassium 4.4 mEq/L mEq/L (3.5-5.2) POC Chloride Chloride 107 mEq/L mEq/L (97-110) Carbon Dioxide 27 mEq/l mEq/l (22-31) Anion Gap 12 mEq/L mEq/L (8-16) POC BUN BUN 11 mg/dL mg/dL (7-23) Creatinine 0.8 mg/dL mg/dL (0.7-1.3) POC Creatinine Estimated GFR > 60 Glucose 94 mg/dL mg/dL (70-100) POC Glucose Calcium 9.5 mg/dL mg/dL (8.5-10.4) Total Bilirubin 0.3 mg/dL mg/dL (0.1-1.4) Conjugated Bilirubin 0.1 mg/dL mg/dL (0.0-0.5) Unconjugated Bilirubin 0.2 mg/dL mg/dL (0.0-1.1) AST 23 IU/L IU/L (17-59) ALT 37 IU/L IU/L (21-72) Alkaline Phosphatase 73 IU/L IU/L (38-126) Total Protein 6.8 g/dL g/dL (6.3-8.2) Albumin 4.1 g/dL g/dL (3.5-5.0) Lipase 76 IU/L IU/L (23-300) Ethyl Alcohol < 10 mg/dL mg/dL (0-10) 09/16/17 09/16/17 00:43 00:40 WBC RBC Hgb POC Hgb 14.6 gm/dL gm/dL (13.7-17.5) Hct POC Hct 43 % % (40-51) MCV MCH MCHC RDW Plt Count MPV Neut % (Auto) Lymph % (Auto) [place] % (Auto) Eos % (Auto) Baso % (Auto) Nucleat RBC Rel Count Absolute Neuts (auto) Absolute Lymphs (auto) Absolute Monos (auto) Absolute Eos (auto) Absolute Basos (auto) Absolute Nucleated RBC Immature Gran % Immature Gran # PT INR APTT VBG Lactic Acid 0.9 mmol/L mmol/L (0.7-2.1) POC Sodium 143 mEq/L mEq/L (134-144) Sodium POC Potassium 4.1 mEq/L mEq/L (3.3-5.0) Potassium POC Chloride 106 mEq/L mEq/L (97-110) Chloride Carbon Dioxide Anion Gap POC BUN 11 mg/dL mg/dL (7-23) BUN Creatinine POC Creatinine 0.8 mg/dL mg/dL (0.7-1.3) Estimated GFR Glucose POC Glucose 94 mg/dL mg/dL (70-100) Calcium Total Bilirubin Conjugated Bilirubin Unconjugated Bilirubin AST ALT Alkaline Phosphatase Total Protein Albumin Lipase Ethyl Alcohol Medications Given: Discontinued Medications Sodium Chloride (Ns) 1,000 mls @ 0 mls/hr IV EDNOW ONE; Wide Open PRN Reason: Protocol Stop: 09/16/17 00:37 Last Admin: 09/16/17 01:12 Dose: 1,000 mls Lorazepam (Ativan Injection) 1 mg IVP EDNOW ONE Stop: 09/16/17 01:03 Last Admin: 09/16/17 01:11 Dose: 1 mg Oxymetazoline HCl (Afrin Nasal [place]) 2 sprays EACHNARE EDNOW ONE Stop: 09/16/17 01:03 Last Admin: 09/16/17 01:10 Dose: 1 btl Point of Care Test Results: 09/16/17 00:40 POC Sodium 143 POC Potassium 4.1 POC Chloride 106 POC BUN 11 POC Creatinine 0.8 POC Glucose 94 Departure - Departure Disposition: Home, Routine, Self-Care Clinical Impression: Dehydration Condition: Good Instructions: Dehydration (ED) Additional Instructions: 1.Return emergency room if he develops worsening symptoms questions or concerns Referrals: NONE *PRIMARY CARE P,. [Primary Care Provider] - As per Instructions
[2017-09-16] MEDS ORDERED: LORazepam 2 MG/ML INJ IVP ONE (01:02)
[2017-09-16] MEDS ORDERED: OXYMETAZOLINE 30 ML NASAL SPRAY EACHNARE ONE (01:02)
[2017-09-16 01:05] LABS: % IMMATURE GRANULYOCYTES 0.9 % (0.0-1.1); ADD DIFF? NO; ADD MORPH? NO; ADD SCAN? NO; ATYPICAL LYMPHOCYTE FLAG 10 (0-99); FRAGMENT RBC FLAG 0 (0-99); HEMATOCRIT 40.9 % (40.0-51.0); HEMOGLOBIN 13.9 g/dL (13.7-17.5); LEFT SHIFT FLG 0 (0-99); LIPEMIA HEMOLYSIS FLAG 90 (0-99); MEAN CELL HEMOGLOBIN 31.3 pg (27.9-34.1); MEAN CELL VOLUME 92.1 fL (81.5-99.8); MEAN PLATELET VOLUME 11.5 fL (8.7-11.7); PLATELET CLUMPS FLAG 10 (0-99); PLATELET COUNT 206 10^3/uL (150-400); RED BLOOD CELL COUNT 4.44 10^6/uL (4.40-6.38); RED CELL DISTRIBUTION WIDTH 12.5 % (11.5-15.2)
[2017-09-16 01:10] LABS: INR 1.05 (0.83-1.16); PROTIME(PATIENT) 13.6 SEC (12.0-15.0)
[2017-09-16 01:11] LABS: APTT 30.2 SEC (23.0-38.0)
[2017-09-16 01:12] LABS: ALANINE AMINOTRANSFERASE 37 IU/L (21-72); ALBUMIN 4.1 g/dL (3.5-5.0); ALKALINE PHOSPHATASE 73 IU/L (38-126); ANION GAP 12 mEq/L (8-16); ASPARTATE AMINOTRANSFERASE 23 IU/L (17-59); BILIRUBIN,TOTAL 0.3 mg/dL (0.1-1.4); BILIRUBIN-CONJUGATED 0.1 mg/dL (0.0-0.5); BILIRUBIN-UNCONJUGATED 0.2 mg/dL (0.0-1.1); CALCIUM 9.5 mg/dL (8.5-10.4); CARBON DIOXIDE 27 mEq/l (22-31); CHLORIDE 107 mEq/L (97-110); CREATININE 0.8 mg/dL (0.7-1.3); ETHANOL SERUM < 10 mg/dL (0-10); GLOMERULAR FILTRATION RATE > 60; GLUCOSE 94 mg/dL (70-100); POTASSIUM 4.4 mEq/L (3.5-5.2); SODIUM 146 mEq/L (134-144); TOTAL PROTEIN 6.8 g/dL (6.3-8.2)
--- NOTE | 2017-09-16 01:21 | CPEKG ---
Heart Rate: 98 RR Interval: 612 P-R Interval: 132 QRSD Interval: 94 QT Interval: 332 QTC Interval: 424 P [place]: 58 QRS [place]: 68 T Wave [place]: 66 EKG Severity - NORMAL ECG - EKG Impression: SINUS RHYTHM Electronically Signed By: Jonathan Morales 16-Sep-2017 06:52:48
[2017-09-16 04:00] VITALS: TEMP 98.1
[2017-09-16] MEDS ORDERED: ACETAMINOPHEN 500 MG TAB PO ONE (07:30)
[2017-09-16] MEDS ORDERED: ONDANSETRON DISINTEGRATING 4 MG TAB PO PRN (08:13)
[2017-09-16] MEDS ORDERED: ONDANSETRON 4 MG/2 ML VIAL IVP PRN (08:13)
[2017-09-16] MEDS ORDERED: ACETAMINOPHEN 325 MG TAB PO PRN (08:13)
[2017-09-16] MEDS ORDERED: NS 1,000 ML IV SCH (08:15)
[2017-09-16 08:50] VITALS: BP 88/75; PULSE 91; O2SAT 94
[2017-09-16] MEDS ORDERED: ENOXAPARIN 40 MG/0.4 ML SYR SC SCH (09:00)
[2017-09-16] MEDS ORDERED: LORazepam 1 MG TAB PO PRN (09:52)
[2017-09-16] MEDS ORDERED: THIAMINE HCL 500 MG in NS 100 ML IV SCH (10:00)
--- NOTE | 2017-09-16 10:25 | GHP ---
[f rep st] HISTORY AND PHYSICAL DATE OF ADMISSION: 09/16/2017 CHIEF COMPLAINT: Abdominal discomfort. HISTORY OF PRESENT ILLNESS: This is a 42-year-old male with a history of significant alcohol abuse. He was brought in to the emergency department on 09/15/2017 after having a witnessed seizure at a [facility] with a subsequent fall, hitting his head. The patient was noted to have a nondisplace d occipital fracture and was admitted to the Trauma Surgery Service for evaluation and monitoring. W jessica on the Trauma Surgery Service, patient decided to leave against medical advice so that he could go drink, per his report. The patient left on 09/15/2017 without full monitoring or evaluation. The patient was subsequently brought back to the emergency department by EMS with complaints of abdom inal discomfort. In the ED, patient was reporting epigastric discomfort. Denies any nausea and vomi ting. Reports that it has been many days since he has had a meal. Cannot tell me when hi s last stool was, but denies any diarrhea or dysuria. Denies lower extremity edema. Denies headache currently to me. Patient also denies any fevers or chills. Will not describe to me when his last d rink or use of illicit drug was. PAST MEDICAL HISTORY: 1. Per hospital record, cerebral palsy. 2. Alcohol abuse. 3. Recent seizure, suspected alcohol withdrawal. SOCIAL HISTORY: Patient is homeless. Denies the use of illicit drugs. FAMILY HISTORY: Patient denies any heart disease. REVIEW OF SYSTEMS: A 10-point review of systems is negative with the exception of that reported in t he HPI. PHYSICAL EXAMINATION: VITAL SIGNS: Blood pressure is 105/71, heart rate 105, respiratory rate 18, 9 7% on room air, temperature 36.7. GENERAL: This is a thin-appearing, disheveled male in no acute di stress. HEENT: Notable for dry blood in the nares, as well as the mouth. Dry mucous membranes. CA RDIAC: Patient is regular, but tachycardic. PULMONARY: Clear to auscultation bilaterally. GASTROI NTESTINAL: Abdomen is thin. Has positive bowel sounds. He is tender to palpation in the epigastriu m. No rebound or guarding is noted. MUSCULOSKELETAL: Negative for any lower extremity edema. SKIN : Notable for scattered excoriations. No rashes are appreciated. NEUROLOGIC: Patient is alert and oriented times person only. Tremor is not noted. PSYCHIATRIC: Appears agitated on my interview an d examination. DATA: White count 10.7, hematocrit 40.9, platelets of 206. Creatinine is 0.8. Liver function tests are normal. Ethyl alcohol is less than 10. Urinalysis from 09/15/[address] of the head from the emergency department, I personally reviewed and interpreted. Off icial radiology read is pending. Shows no acute bleed. Occipital fracture appears stable. ASSESSMENT AND PLAN: This is a 42-year-old male presenting with epigastric discomfort and encephalop athy. 1. Acute encephalopathy. Suspect this may be related to withdrawal. We will order CIWA protocol as well as an acute drug screen to rule out any acute intoxications obtained while outside the hospital . Will treat with IV thiamine and follow the patient's clinical progress with supportive care. CT s can of the head is reassuring. There is no bleed related to his previous occipital fracture. Will a dmit the patient to Neurology for neurologic monitoring. 2. Hypotension. The patient sounds as if his oral intake has been poor. We will fluid resuscitate and follow. Again, sending urine drug screen. Hemoglobin and hematocrit are stable, no signs of acu te bleeding at this time. Will continue to monitor. 3. Occipital fracture, subacute. Appears stable on imaging. The patient was seen previously by Ty cintron. I do not think we need to reconsult them at this time. Will continue to monitor on [address] [place] [address]. 4. Prophylaxis with Lovenox. Diet regular. DISPOSITION: I expect greater than 2 midnights as the patient is presenting with acute encephalopath y likely related to withdrawal and will require active treatment and supportive care. Discussed the case with the emergency room physician. Patient will be triaged to [address] [place] [address]. /[id number]/MODL
[2017-09-16] MEDS ORDERED: LORazepam 2 MG/ML INJ ONE (12:40)
[2017-09-16] MEDS ORDERED: chlordiazePOXIDE 25 MG CAP ONE (12:40)
[2017-09-16] MEDS ORDERED: NICOTINE 21 MG/24 HR PATCH TD ONE (12:40)
[2017-09-16] MEDS ORDERED: chlordiazePOXIDE 25 MG CAP PO PRN ×2 (13:00→15:15)
[2017-09-16] MEDS ORDERED: NICOTINE 21 MG/24 HR PATCH TD SCH (13:00)
[2017-09-16] MEDS ORDERED: LORazepam 2 MG/ML INJ IVP PRN (13:00)
--- NOTE | 2017-09-16 14:41 | ASDISCHSUM ---
Discharge Information Plan Status: Medically Cleared to Leave: Discharge Date:09/16/2017 02:04 PM CM D/C Disposition:Against Medical Advice ADT D/C Disposition:Against Medical Advice Projected Discharge Date:09/16/2017 02:04 PM Transportation at D/C: Discharge Delay Reason: Follow-Up Date:09/16/2017 02:04 PM Discharge Slot: Final Diagnosis: Placement Information Patient Contact Information Contact Name:CARLYLE Relationship:Other Address: Work Phone: City: [facility] Phone: State/Zip Code: Email: Financial Information Financial Class:MD Primary Plan Desc:[employer] [place] Primary Plan Number:[id number] Secondary Plan Desc: Secondary Plan Number: Assessment Information LACE LACE Acuity / Level of Care Answers: Was the patient admitted to hospital via the emergency department? Yes: Emergency dept visits in Answers: 3 last 6 months Score: 6 Date Signed: 09/16/2017 10:07 AM Electronically Signed By:Mitzy Sheppard RN Intervention Information
--- NOTE | 2017-09-16 14:54 | PDMN ---
Medical Necessity Medical necessity: est los>2mn for eval and rx of acute encephalopathy likely r/ t etoh withdrawal, epigastric pain, hypotension and occipital fx; admit for IVF , CIWA, and neurological monitoring; comorbid cerebral palsy, etoh abuse, recent sz,;d/c AMA 09/15/17; per order and H&P 11/16/16
[2017-09-16] MEDS ORDERED: PATCH REMOVAL 1 EA PATCH TD SCH (21:00)
--- NOTE | 2017-09-17 00:23 | GDS ---
[f rep st] DISCHARGE SUMMARY AGAINST MEDICAL ADVICE DISCHARGE: 09/16/2017. DISCHARGE DIAGNOSES: Include: 1. Acute encephalopathy, presumed secondary to acute intoxication. 2. Stable occipital fracture. 3. History of alcohol abuse and suspect polysubstance abuse. HISTORY OF PRESENT ILLNESS: This is a 42-year-old male presenting for the 2nd time in 48 hours with acute confusion, lethargy and pain. The patient was initially evaluated by the trauma surgery servic radhames, found to have a stable occipital fracture, admitted for observation. When the patient was stabili zed with supportive care, cleared from a mental status standpoint, he insisted on leaving against med ical advice. He then returned back to the hospital within 12 hours, again, somnolent secondary to ac [place] intoxication and/or withdrawal. Patient was medically stabilized, had clearing of his mental sta tus and again, has left against medical advice. We were unable to complete our initial evaluation of his encephalopathy. I can only gather that it was related to acute intoxication of medications we d id not test for with a drug screen, as it did clear with supportive treatment in the hospital. It wo uld be my recommendation that this patient not continue to be readmitted for acute intoxication but i nstead, observed in the emergency department for a short period of time with supportive care if, in f act, he returns to the hospital again. MEDICATIONS: At the time of disposition, the patient did not leave with any prescriptions. The patient left against medical advice on 09/16/2017, at approximately 3 p.m. /[id number]/MODL
[2017-09-19] MEDS ORDERED: THIAMINE HCL 100 MG TAB PO SCH (09:52)
== END 2017-09-16 14:30 | disposition left against medical advice (07) | DRG 71 ==
LOC: EDUNIT# → EDBD → F3N 08:38 → UNDODISIN 14:04
PROVIDERS: ADMIT Family Medicine; ATTEND Family Medicine
DX: G93.49 Other encephalopathy (principal); S02.119A Unspecified fracture of occiput, initial encounter for closed fracture; F10.239 Alcohol dependence with withdrawal, unspecified; G80.9 Cerebral palsy, unspecified; W18.39XA Other fall on same level, initial encounter; Z59.0 Homelessness; Z72.0 Tobacco use
CPT/HCPCS: 82947-QW; 96374; G0480; J1650; J2060; J3411

== ENCOUNTER 2017-09-16 19:41 | Emergency (ER) | payer MEDICAID ==
[2017-09-16 19:47] VITALS: BP 125/86; TEMP 98.2
[2017-09-16 19:48] VITALS: PULSE 99; RESP 18; O2SAT 96
--- NOTE | 2017-09-16 19:48 | EDPHY ---
H & P Stated Complaint: cough/back pain Time Seen by Provider: 09/16/17 19:48 - Medical/Surgical History Hx Asthma: No Hx Chronic Respiratory Disease: No Hx Diabetes: No Hx Cardiac Disease: No Hx Renal Disease: No Hx Cirrhosis: No Hx Alcoholism: No Hx HIV/AIDS: No Hx Splenectomy or Spleen Trauma: No Other PMH: spina bifidaq/chiari surg/spinal surgery - Social History Smoking Status: Current every day smoker Constitutional: Initial Vital Signs Temperature (C) 36.8 C 09/16/17 19:43 Heart Rate 99 09/16/17 19:43 Respiratory Rate 18 09/16/17 19:43 Blood Pressure 125/86 H 09/16/17 19:43 O2 Sat (%) 96 09/16/17 19:43 O2 Delivery Mode Room Air Allergies/Adverse Reactions: No Known Allergies Allergy (Verified 08/10/17 10:01) Home Medications: Medication Instructions Recorded NK [No Known Home Meds] 09/15/17 Medical Decision Making ED Course/Re-evaluation: CHIEF COMPLAINT: HISTORY OF PRESENT ILLNESS: The patient is a 42-year-old male with a history of alcohol abuse. The patient was eitan to the ED 09/15/2017 after [facility] a [facility] with a subsequent fall, hitting his head. The patient was found to have a nondisplaced occipital fracture and was admitted. While admitted the pt decided to leave AMA to go drink. The patient was then brought back to ED by EMS with complaints of abdominal discomfort. The patient was admitted again with acute encephalopathy likely related to withdrawal. He returns today with complaints of continued abdominal pain and states he is very hungry. He denies nausea, vomiting, diarrhea. REVIEW OF SYSTEMS: A 10 point review of systems was performed and is negative with the exception of the elements mentioned in the history of present illness. PHYSICAL EXAM: HR, BP, O2 Sat, RR. Temp noted General Appearance: Alert, well hydrated, appropriate, and non-toxic appearing. Head: Atraumatic without scalp tenderness or obvious injury Eyes: Pupils equal, round, reactive to light and accommodation, EOMI, no trauma , no injection. Ears: Clear bilaterally, no perforation, normal landmarks Nose: Atraumatic, no rhinorrhea, clear. Throat: There is no erythema or exudates, no lesions, normal tonsils, mucus membranes moist. Neck: Supple, 2+ carotid upstroke, nontender, no lymphadenopathy. Respiratory: No retractions, no distress, no wheezes, and no accessory muscle use. Lungs are clear to auscultation bilaterally. Cardiovascular: Regular rate and rhythm, no murmurs, rubs, or gallops. Bilateral carotid, radial, dorsalis pedis, and posterior tibial pulses intact. Good capillary refill all extremities. Gastrointestinal: Abdomen is soft, nontender, non-distended, no masses, no rebound, no guarding, no peritoneal signs. Musculoskeletal: Normal active ROM of all extremities, atraumatic. Neurological: Alert, appropriate, and interactive. The patient has normal DTRs and non-focal cranial nerves, motor, sensory, and cerebellar exam. Skin: No rashes, good turgor, no nodules on palpation. Past medical history: Past surgical history: Family history: Social history: DIFFERENTIAL DIAGNOSIS: MEDICAL DECISION MAKING: Patient has had a complete work up from previous two admissions. He returns today with continued abdominal pain and states he is hungry. He refuses to answer questions appropriately. Patient has a benign abdominal examination. I believe the patient is malingering. His vitals are stable. Patient will be discharged home. Departure - Departure Disposition: Home, Routine, Self-Care Clinical Impression: Malingerer Condition: Good Instructions: Additional Information Additional Instructions: The [facility] has walk-in appointments for the homeless at the following days/locations. No appointment is needed. Saturday 8-10 am @ [facility] 11 AM-1 PM @ [facility] Saturday 8-10:30 AM @ [facility] Saturday 8-10 AM @ [facility] 2-4 PM @ [facility] Saturday 8-10 AM @ [facility] Referrals: [facility],. [Clinic] - As per Instructions Report Scribed for: Sharan Billings Report Scribed by: Belinda Titus Date of Report: 09/16/17 Time of Report: 20:28
== END 2017-09-16 20:30 | disposition home or self-care (01) ==
LOC: EDUNIT#
DX: Z76.5 Malingerer [conscious simulation] (principal); F17.200 Nicotine dependence, unspecified, uncomplicated

== ENCOUNTER 2017-09-17 00:07 | Emergency (ER) | payer MEDICAID ==
[2017-09-17 00:14] VITALS: BP 141/78; PULSE 97; RESP 18; TEMP 97.5; O2SAT 98
--- NOTE | 2017-09-17 00:29 | EDPHY ---
H & P Stated Complaint: med clear HPI/ROS: HPI CHIEF COMPLAINT: Medical clearance for alf HISTORY OF PRESENT ILLNESS: This patient is a 42-year-old male well known to myself as seen him every night for the past 3 nights. Significant past medical history for artery artery malformation, cerebral palsy, spina bifida, alcohol use. He was recently here in the emergency room without septal skull fracture. That was 2 nights ago and then I also saw him last night for a multitude of complaints. Presents emergency room as he has warm for rest. He is due to go to alf. He is here for cough. Otherwise has no significant complaints. Past medical history: Cerebral palsy, on [place] artery malformation, spina bifida , recent occipital skull fracture Past Surgical History: Cranial surgery Social History: Homeless, history of alcohol use. Family History: Noncontributory ROS REVIEW OF SYSTEMS: A comprehensive 10 point review of systems is otherwise negative aside from elements mentioned in the history of present illness. Exam Constitutional appears well nontoxic at his baseline triage nursing summary reviewed, vital signs reviewed, awake/alert. Eyes normal conjunctivae and sclera, EOMI, PERRLA. HENT normal inspection, atraumatic, moist mucus membranes, no epistaxis, neck supple/ no meningismus, no raccoon eyes. Respiratory clear lungs, clear to auscultation bilaterally, normal breath sounds, no respiratory distress, no wheezing. Cardiovascular rate normal, regular rhythm, no murmur, no edema, distal pulses normal. Gastrointestinal soft, non-tender, no rebound, no guarding, normal bowel sounds, no distension, no pulsatile mass. Genitourinary no CVA tenderness. Musculoskeletal no midline vertebral tenderness, full range of motion, no calf swelling, no tenderness of extremities, no meningismus, good pulses, neurovascularly intact. Skin pink, warm, & dry, no rash, skin atraumatic. Neurologic at his neurological baseline awake, alert and oriented x 3, AAOx3, moves all 4 extremities equally, motor intact, sensory intact, CN II-XII intact , normal cerebellar, normal vision, normal speech. Psychiatric normal mood/affect. Heme/Lymph/Immune no lymphadenopathy. Differential Diagnosis: Includes but is not limited to in a particular order cough, pneumothorax, pneumonia. Medical Decision Making: Patient's exam is at his baseline as I have seen him every night for the past 3 nights. He has clear lungs bilaterally. His oxygen saturations appropriate. I do not feel that he needs any new imaging tonight. He will be medically cleared for alf. He did cough in the emergency room and it is a dry cough. Source: Patient - Personal History Current Tetanus/Diphtheria Vaccine: Unsure - Medical/Surgical History Hx Asthma: No Hx Chronic Respiratory Disease: No Hx Diabetes: No Hx Cardiac Disease: No Hx Renal Disease: No Hx Cirrhosis: No Hx Alcoholism: No Hx HIV/AIDS: No Hx Splenectomy or Spleen Trauma: No Other PMH: spina bifidaq/chiari surg/spinal surgery - Social History Smoking Status: Current every day smoker Constitutional: Initial Vital Signs Temperature (C) 36.4 C 09/17/17 00:11 Heart Rate 97 09/17/17 00:11 Respiratory Rate 18 09/17/17 00:11 Blood Pressure 141/78 H 09/17/17 00:11 O2 Sat (%) 98 09/17/17 00:11 O2 Delivery Mode Room Air Allergies/Adverse Reactions: No Known Allergies Allergy (Verified 09/17/17 00:14) Home Medications: Medication Instructions Recorded NK [No Known Home Meds] 09/15/17 Departure - Departure Disposition: Home, Routine, Self-Care Clinical Impression: Cough Condition: Good Instructions: Cold Symptoms (ED) Additional Instructions: 1.Medically cleared for alf. Referrals: NONE *PRIMARY CARE P,. [Primary Care Provider] - As per Instructions
== END 2017-09-17 00:39 | disposition home or self-care (01) ==
LOC: EDUNIT# → EDBD
DX: R05 Cough (principal); F17.200 Nicotine dependence, unspecified, uncomplicated

== ENCOUNTER 2017-09-20 21:37 | Emergency (ER) | payer MEDICAID ==
[2017-09-20 21:45] VITALS: RESP 16
--- NOTE | 2017-09-20 21:52 | EDPHY ---
General Narrative: CHIEF COMPLAINT: "choking" HISTORY OF PRESENT ILLNESS: Patient arrives by EMS. He seen at time arrival. [facility] with complaint of "choking on my stomach contents." He reports that this has happened twice tonight. He says he awakes to this. No chest pain. He does not feel these aspirated but he is not certain. No shortness of breath. No difficulty breathing. EMS reports that there was no vomitus about his person when they arrive. Vital signs were reportedly normal at time arrival with normal oxygenation on room air. He says that this is not half before he is concerned of some abnormality of the fundoplication that he had performed many years ago. No other associated complaints or modifying factors. REVIEW OF SYSTEMS: Ten systems reviewed and are negative unless otherwise noted in the HPI PCP: [facility] SPECIALISTS: "some GI physician" that he does not recall PAST MEDICAL HISTORY: Acid reflux, spina bifida PAST SURGICAL HISTORY: Guy fundoplication SOCIAL HISTORY: Nonsmoker. FAMILY HISTORY: Noncontributory EXAMINATION General Appearance: Alert, no distress Head: normocephalic, atraumatic Eyes: Pupils equal and round, no conjunctival pallor or injection ENT, Mouth: Mucous membranes moist. Uvula midline. Airway is patent. Neck: Normal inspection, supple, non-tender. Midline trachea Respiratory: Mild rhonchi. No crackles. No diminishment. No distress. Cardiovascular: Regular rate and rhythm. No murmur Gastrointestinal: Abdomen is soft and nontender Neurological: A&O, nonfocal Skin: Warm and dry, no rash. No petechiae or purpura Extremities: Nontender, no pedal edema Psychiatric: Mood and affect normal DIFFERENTIAL DIAGNOSES: Including but not limited to aspiration, choking, postoperative complication, soften tightness, reflux MDM: 9:48 p.m. Possible aspiration of vomit. There is no vomitus on the patient. There is no report of any vomit on or near the patient upon arrival of EMS. Auscultation reveals some rhonchi but no evidence of pneumonia or aspiration. I have ordered chest x-ray to rule out any significant aspiration and verify location of his esophageal clips as he has had several chest x-rays here. Vital signs are within normal limits. 10:09 p.m. Chest x-ray as read by me reveals no evidence of aspiration. No pneumonia. This is stable in appearance from previous chest x-ray. 10:25 p.m. Patient has passed a p.o. challenge without difficulty. Discharged home stable condition. Follow up with primary care physician at [facility]. Discussed with him a GI referral if needed. ED precautions discussed. - Diagnostics Imaging Results: Imaging Impressions Chest X-Ray 09/20/17 21:48 Impression: Findings suggestive of airways disease are seen with no alveolar opacities to suggest aspiration pneumonia. - History Smoking Status: Current every day smoker - Objective Vital Signs: Initial Vital Signs Temperature (C) 98.2 F 09/20/17 21:43 Heart Rate 83 09/20/17 21:43 Respiratory Rate 16 09/20/17 21:43 Blood Pressure 100/64 09/20/17 21:43 O2 Sat (%) 96 09/20/17 21:43 O2 Delivery Mode Room Air Allergies/Adverse Reactions: No Known Allergies Allergy (Verified 09/20/17 21:45) Home Medications: Medication Instructions Recorded NK [No Known Home Meds] 09/15/17 Departure - Departure Disposition: Home, Routine, Self-Care Clinical Impression: Reflux involving intestinal tract Condition: Good Instructions: Diet for Stomach Ulcers and Gastritis (ED), Gastroesophageal Reflux Disease (ED) Additional Instructions: 1. Contact primary care physician for outpatient follow-up 2. ED precautions as discussed Referrals: [facility],. [Clinic] - As per Instructions Sid Chacon DO [Medical Doctor] - As per Instructions
[2017-09-20 22:41] VITALS: BP 124/87; PULSE 69; TEMP 98.4; O2SAT 97
== END 2017-09-20 22:50 | disposition home or self-care (01) ==
LOC: EDUNIT#
DX: K21.9 Gastro-esophageal reflux disease without esophagitis (principal); F17.200 Nicotine dependence, unspecified, uncomplicated

== ENCOUNTER 2017-09-21 22:37 | Emergency (ER) | payer MEDICAID ==
[2017-09-21 22:42] VITALS: TEMP 98.1
--- NOTE | 2017-09-21 22:46 | EDPHY ---
H & P Stated Complaint: near syncope HPI/ROS: HPI The patient presents with possible episode of presyncope, brought in by ambulance from the [place] [facility] where he has been staying lately. Apparently, he was found in the laundry room and was hard to arouse with labored breathing. He was able to respond to questioning however his responses were slow. He also had an episode he reports when he was sitting on the toilet and felt lightheaded though did not lose consciousness. He says he felt disoriented during this episode and had some visual changes. He was seen in the emergency department earlier today for diffuse abdominal pain with a normal workup. He was discharged with ibuprofen which is nurse reports that he threw in the garbage can immediately. He returned back to the [place] [facility]. He was recently admitted to the hospital for an occipital fracture, he does have a history of alcohol use.. He asks if he can stay in the hospital overnight and does not want to be released REVIEW OF SYSTEMS Constitutional: No fever, no chills. Eyes: No discharge. ENT: No sore throat. Cardiovascular: No chest pain, no palpitations. Respiratory: No cough, no shortness of breath. Gastrointestinal: No abdominal pain, no vomiting. Genitourinary: No hematuria. Musculoskeletal: No back pain. Skin: No rashes. Neurological: No headache. PMHx: History of spina bifida, recent occipital fracture, frequent ER visits Soc Hx: Homeless, alcohol use PHYSICAL General Appearance: Alert, no distress Eyes: Pupils equal and round no pallor or injection ENT, Mouth: Mucous membranes moist Respiratory: There are no retractions, lungs are clear to auscultation Cardiovascular: Regular rate and rhythm Gastrointestinal: Abdomen is soft and non-tender, no masses, bowel sounds normal Neurological: A&O, moves all extremities Skin: Warm and dry, no rashes Musculoskeletal: Neck is supple non tender Extremities: symmetrical, full range of motion Psychiatric: Patient is oriented X 3, there is no agitation Source: Patient, EMS, Old records - Personal History Current Tetanus/Diphtheria Vaccine: Unsure Current Tetanus Diphtheria and Acellular Pertussis (TDAP): Unsure - Medical/Surgical History Hx Asthma: Yes Hx Chronic Respiratory Disease: No Hx Diabetes: No Hx Cardiac Disease: No Hx Renal Disease: No Hx Cirrhosis: No Hx Alcoholism: No Hx HIV/AIDS: No Hx Splenectomy or Spleen Trauma: No Other PMH: spina bifidaq/chiari surg/spinal surgery, asthma, GERD, - Social History Smoking Status: Current every day smoker Constitutional: Initial Vital Signs Temperature (C) 36.7 C 09/21/17 22:39 Heart Rate 98 09/21/17 22:39 Respiratory Rate 16 09/21/17 22:39 Blood Pressure 112/77 09/21/17 22:39 O2 Sat (%) 96 09/21/17 22:39 O2 Delivery Mode Room Air Allergies/Adverse Reactions: No Known Allergies Allergy (Verified 09/21/17 13:23) Home Medications: Medication Instructions Recorded Ibuprofen [Motrin] 800 mg PO Q8 #20 tab 09/21/17 Medical Decision Making - Diagnostics EKG Interpretation: EKG: Complete interpretation has been separately recorded in the [facility] archive. Summary impression: Normal sinus rhythm Differential Diagnosis: This is a 42-year-old man, with past medical history of occipital fracture, visit earlier today for abdominal pain, homelessness who presents brought in by ambulance from the [place] [facility] with an episode of presyncope, perhaps 2 of these. On exam, he is well-appearing, he has normal vital signs, field EKG is unremarkable and blood glucose is normal. Differential diagnosis includes arrhythmia, electrolyte disturbance, alcohol intoxication. Is in the emergency department, patient was monitored for several hours with no recurrence of his symptoms. EKG and basic laboratory testing was all normal except for urine toxicology positive for benzodiazepines. The patient was discharged from the emergency department, though he requested to stay on several occasions overnight. - Data Points Laboratory Results: Laboratory Results 09/21/17 23:30 09/21/17 23:30 09/22/17 09/21/17 09/21/17 00:15 23:30 23:30 WBC 9.70 10^3/uL H 10^3/uL (3.80-9.50) RBC 4.19 10^6/uL L 10^6/uL (4.40-6.38) Hgb 12.7 g/dL L g/dL (13.7-17.5) Hct 37.7 % L % (40.0-51.0) MCV 90.0 fL fL (81.5-99.8) MCH 30.3 pg pg (27.9-34.1) MCHC 33.7 g/dL g/dL (32.4-36.7) RDW 12.3 % % (11.5-15.2) Plt Count 244 10^3/uL 10^3/uL (150-400) MPV 11.0 fL fL (8.7-11.7) Neut % (Auto) 60.5 % % (39.3-74.2) Lymph % (Auto) 26.6 % % (15.0-45.0) [place] % (Auto) 7.9 % % (4.5-13.0) Eos % (Auto) 3.7 % % (0.6-7.6) Baso % (Auto) 1.0 % % (0.3-1.7) Nucleat RBC Rel Count 0.0 % % (0.0-0.2) Absolute Neuts (auto) 5.86 10^3/uL 10^3/uL (1.70-6.50) Absolute Lymphs (auto) 2.58 10^3/uL 10^3/uL (1.00-3.00) Absolute Monos (auto) 0.77 10^3/uL 10^3/uL (0.30-0.80) Absolute Eos (auto) 0.36 10^3/uL 10^3/uL (0.03-0.40) Absolute Basos (auto) 0.10 10^3/uL 10^3/uL (0.02-0.10) Absolute Nucleated RBC 0.00 10^3/uL 10^3/uL (0-0.01) Immature Gran % 0.3 % % (0.0-1.1) Immature Gran # 0.03 10^3/uL 10^3/uL (0.00-0.10) Sodium 141 mEq/L mEq/L (134-144) Potassium 4.2 mEq/L mEq/L (3.5-5.2) Chloride 104 mEq/L mEq/L (97-110) Carbon Dioxide 22 mEq/l mEq/l (22-31) Anion Gap 15 mEq/L mEq/L (8-16) BUN 11 mg/dL mg/dL (7-23) Creatinine 0.7 mg/dL mg/dL (0.7-1.3) Estimated GFR > 60 Glucose 117 mg/dL H mg/dL (70-100) Calcium 9.3 mg/dL mg/dL (8.5-10.4) Total Bilirubin < 0.1 mg/dL L mg/dL (0.1-1.4) AST 19 IU/L IU/L (17-59) ALT 39 IU/L IU/L (21-72) Alkaline Phosphatase 79 IU/L IU/L (38-126) Total Protein 6.1 g/dL L g/dL (6.3-8.2) Albumin 3.7 g/dL g/dL (3.5-5.0) Urine Opiates Screen NEGATIVE (NEGATIVE) Urine Barbiturates NEGATIVE (NEGATIVE) Ur Phencyclidine Scrn NEGATIVE (NEGATIVE) Ur Amphetamine Screen NEGATIVE (NEGATIVE) U Benzodiazepines Scrn NON-NEGATIVE H (NEGATIVE) Urine Cocaine Screen NEGATIVE (NEGATIVE) U Marijuana (THC) Screen NEGATIVE (NEGATIVE) Ethyl Alcohol < 10 mg/dL mg/dL (0-10) Departure - Departure Disposition: Home, Routine, Self-Care Clinical Impression: Syncope Qualifiers: Syncope type: unspecified Qualified Code(s): R55 - Syncope and collapse Condition: Good Instructions: Syncope (ED) Additional Instructions: Sure to drink plenty of fluids in the next few days. Return to the emergency department if your worse in any way. Referrals: [facility],. [Clinic] - As per Instructions
[2017-09-21 23:38] LABS: % IMMATURE GRANULYOCYTES 0.3 % (0.0-1.1); ABSOLUTE IMMATURE GRANULOCYTES 0.03 10^3/uL (0.00-0.10); ADD DIFF? NO; ADD MORPH? NO; ADD SCAN? NO; ATYPICAL LYMPHOCYTE FLAG 30 (0-99); FRAGMENT RBC FLAG 0 (0-99); HEMATOCRIT 37.7 % (40.0-51.0); HEMOGLOBIN 12.7 g/dL (13.7-17.5); LEFT SHIFT FLG 0 (0-99); LIPEMIA HEMOLYSIS FLAG 80 (0-99); MEAN CELL HEMOGLOBIN 30.3 pg (27.9-34.1); MEAN CELL HEMOGLOBIN CONCENTR. 33.7 g/dL (32.4-36.7); PLATELET CLUMPS FLAG 0 (0-99); PLATELET COUNT 244 10^3/uL (150-400); RED BLOOD CELL COUNT 4.19 10^6/uL (4.40-6.38); RED CELL DISTRIBUTION WIDTH 12.3 % (11.5-15.2)
[2017-09-21] MEDS ORDERED: PROMETHAZINE HCL 25 MG/ML INJ ONE (23:40)
[2017-09-21] MEDS ORDERED: DEXAMETHASONE 10 MG/ML VIAL ONE (23:40)
[2017-09-22 00:13] LABS: ALANINE AMINOTRANSFERASE 39 IU/L (21-72); ALBUMIN 3.7 g/dL (3.5-5.0); ALKALINE PHOSPHATASE 79 IU/L (38-126); ANION GAP 15 mEq/L (8-16); ASPARTATE AMINOTRANSFERASE 19 IU/L (17-59); CALCIUM 9.3 mg/dL (8.5-10.4); CARBON DIOXIDE 22 mEq/l (22-31); CHLORIDE 104 mEq/L (97-110); CREATININE 0.7 mg/dL (0.7-1.3); ETHANOL SERUM < 10 mg/dL (0-10); GLOMERULAR FILTRATION RATE > 60; GLUCOSE 117 mg/dL (70-100); POTASSIUM 4.2 mEq/L (3.5-5.2); SODIUM 141 mEq/L (134-144); TOTAL PROTEIN 6.1 g/dL (6.3-8.2)
[2017-09-22 00:24] LABS: BILIRUBIN,TOTAL < 0.1 mg/dL (0.1-1.4)
[2017-09-22 00:51] VITALS: BP 108/68; PULSE 68; RESP 18; O2SAT 98
== END 2017-09-22 00:51 | disposition home or self-care (01) ==
LOC: EDUNIT#
DX: R55 Syncope and collapse (principal); J45.909 Unspecified asthma, uncomplicated; F17.200 Nicotine dependence, unspecified, uncomplicated
CPT/HCPCS: 80305; G0480; J1100; J1200; J2550

== ENCOUNTER 2017-09-25 02:15 | Emergency (ER) | payer MEDICAID ==
[2017-09-25 02:22] VITALS: RESP 16; TEMP 98.1; O2SAT 95
[2017-09-25 02:32] LABS: % IMMATURE GRANULYOCYTES 0.2 % (0.0-1.1); ABSOLUTE IMMATURE GRANULOCYTES 0.02 10^3/uL (0.00-0.10); ADD DIFF? NO; ADD MORPH? NO; ADD SCAN? NO; ATYPICAL LYMPHOCYTE FLAG 20 (0-99); FRAGMENT RBC FLAG 0 (0-99); HEMATOCRIT 41.6 % (40.0-51.0); HEMOGLOBIN 14.3 g/dL (13.7-17.5); LEFT SHIFT FLG 0 (0-99); LIPEMIA HEMOLYSIS FLAG 90 (0-99); MEAN CELL HEMOGLOBIN 30.8 pg (27.9-34.1); MEAN CELL HEMOGLOBIN CONCENTR. 34.4 g/dL (32.4-36.7); MEAN CELL VOLUME 89.7 fL (81.5-99.8); MEAN PLATELET VOLUME 10.7 fL (8.7-11.7); PLATELET CLUMPS FLAG 0 (0-99); PLATELET COUNT 290 10^3/uL (150-400); RED BLOOD CELL COUNT 4.64 10^6/uL (4.40-6.38); RED CELL DISTRIBUTION WIDTH 12.4 % (11.5-15.2)
[2017-09-25 03:00] LABS: ALANINE AMINOTRANSFERASE 39 IU/L (21-72); ALBUMIN 4.2 g/dL (3.5-5.0); ALKALINE PHOSPHATASE 88 IU/L (38-126); ANION GAP 12 mEq/L (8-16); ASPARTATE AMINOTRANSFERASE 22 IU/L (17-59); BILIRUBIN,TOTAL 0.2 mg/dL (0.1-1.4); CALCIUM 9.5 mg/dL (8.5-10.4); CARBON DIOXIDE 23 mEq/l (22-31); CHLORIDE 105 mEq/L (97-110); CREATININE 0.9 mg/dL (0.7-1.3); ETHANOL SERUM < 10 mg/dL (0-10); GLOMERULAR FILTRATION RATE > 60; GLUCOSE 96 mg/dL (70-100); POTASSIUM 4.5 mEq/L (3.5-5.2); SODIUM 140 mEq/L (134-144); TOTAL PROTEIN 6.8 g/dL (6.3-8.2)
--- NOTE | 2017-09-25 04:02 | EDPHY ---
H & P Stated Complaint: possible seizure Time Seen by Provider: 09/25/17 02:19 HPI/ROS: HPI The patient presents with concern for seizure, [facility]. Apparently some bystanders a seizure and that he was shaking while awake and were concern for seizure, thus 911 was called. The patient does have a remote history of seizures though cannot recall when his last 1 was. He denies any complaints currently but generally says he feels badly. He has a difficult time articulating what bothering him.. REVIEW OF SYSTEMS Constitutional: No fever, no chills. Eyes: No discharge. ENT: No sore throat. Cardiovascular: No chest pain, no palpitations. Respiratory: No cough, no shortness of breath. Gastrointestinal: No abdominal pain, no vomiting. Genitourinary: No hematuria. Musculoskeletal: No back pain. Skin: No rashes. Neurological: No headache. PMHx: History of Chiari malformation, history of seizure per his record, not on any antiepileptics, GERD Soc Hx: Homeless, denies alcohol abuse PHYSICAL General Appearance: Alert, no distress Eyes: Pupils equal and round no pallor or injection ENT, Mouth: Mucous membranes moist Respiratory: There are no retractions, lungs are clear to auscultation Cardiovascular: Regular rate and rhythm Gastrointestinal: Abdomen is soft and non-tender, no masses, bowel sounds normal Neurological: A&O, moves all extremities Skin: Warm and dry, no rashes Musculoskeletal: Neck is supple non tender Extremities: symmetrical, full range of motion Psychiatric: Patient is oriented X 3, there is no agitation Source: Patient Exam Limitations: No limitations - Personal History Current Tetanus/Diphtheria Vaccine: Yes Current Tetanus Diphtheria and Acellular Pertussis (TDAP): Yes - Medical/Surgical History Hx Asthma: Yes Hx Chronic Respiratory Disease: No Hx Diabetes: No Hx Cardiac Disease: No Hx Renal Disease: No Hx Cirrhosis: No Hx Alcoholism: No Hx HIV/AIDS: No Hx Splenectomy or Spleen Trauma: No Other PMH: spina bifidaq/chiari surg/spinal surgery, asthma, GERD, - Social History Smoking Status: Current every day smoker Constitutional: Initial Vital Signs Temperature (C) 36.7 C 09/25/17 02:20 Heart Rate 89 09/25/17 02:20 Respiratory Rate 16 09/25/17 02:20 Blood Pressure 109/62 09/25/17 02:20 O2 Sat (%) 95 09/25/17 02:20 O2 Delivery Mode Room Air Allergies/Adverse Reactions: No Known Allergies Allergy (Verified 09/25/17 02:20) Home Medications: Medication Instructions Recorded Ibuprofen [Motrin] 800 mg PO Q8 #20 tab 09/21/17 Medical Decision Making Differential Diagnosis: This is a 42-year-old man [facility] with history of seizures though not on any antiepileptics, presents with possible seizure. The patient was awake the entire time with shaking of his extremities. This does not sound like seizure based on history, could be electrolyte abnormality, the pseudo-seizure, be dehydration. He not have any oral trauma, urinary incontinence, postictal phase. In the emergency department, labs were checked a relatively unremarkable. Given the lack of anion gap acidosis, I believe seizure is very unlikely. He was observed emergency department for several hours with no ongoing symptoms whatsoever. [facility]. - Data Points Laboratory Results: Laboratory Results 09/25/17 02:30 09/25/17 02:30 09/25/17 09/25/17 02:30 02:30 WBC 9.75 10^3/uL H 10^3/uL (3.80-9.50) RBC 4.64 10^6/uL 10^6/uL (4.40-6.38) Hgb 14.3 g/dL g/dL (13.7-17.5) Hct 41.6 % % (40.0-51.0) MCV 89.7 fL fL (81.5-99.8) MCH 30.8 pg pg (27.9-34.1) MCHC 34.4 g/dL g/dL (32.4-36.7) RDW 12.4 % % (11.5-15.2) Plt Count 290 10^3/uL 10^3/uL (150-400) MPV 10.7 fL fL (8.7-11.7) Neut % (Auto) 50.1 % % (39.3-74.2) Lymph % (Auto) 37.3 % % (15.0-45.0) [place] % (Auto) 6.9 % % (4.5-13.0) Eos % (Auto) 4.3 % % (0.6-7.6) Baso % (Auto) 1.2 % % (0.3-1.7) Nucleat RBC Rel Count 0.0 % % (0.0-0.2) Absolute Neuts (auto) 4.88 10^3/uL 10^3/uL (1.70-6.50) Absolute Lymphs (auto) 3.64 10^3/uL H 10^3/uL (1.00-3.00) Absolute Monos (auto) 0.67 10^3/uL 10^3/uL (0.30-0.80) Absolute Eos (auto) 0.42 10^3/uL H 10^3/uL (0.03-0.40) Absolute Basos (auto) 0.12 10^3/uL H 10^3/uL (0.02-0.10) Absolute Nucleated RBC 0.00 10^3/uL 10^3/uL (0-0.01) Immature Gran % 0.2 % % (0.0-1.1) Immature Gran # 0.02 10^3/uL 10^3/uL (0.00-0.10) Sodium 140 mEq/L mEq/L (134-144) Potassium 4.5 mEq/L mEq/L (3.5-5.2) Chloride 105 mEq/L mEq/L (97-110) Carbon Dioxide 23 mEq/l mEq/l (22-31) Anion Gap 12 mEq/L mEq/L (8-16) BUN 14 mg/dL mg/dL (7-23) Creatinine 0.9 mg/dL mg/dL (0.7-1.3) Estimated GFR > 60 Glucose 96 mg/dL mg/dL (70-100) Calcium 9.5 mg/dL mg/dL (8.5-10.4) Total Bilirubin 0.2 mg/dL mg/dL (0.1-1.4) AST 22 IU/L IU/L (17-59) ALT 39 IU/L IU/L (21-72) Alkaline Phosphatase 88 IU/L IU/L (38-126) Total Protein 6.8 g/dL g/dL (6.3-8.2) Albumin 4.2 g/dL g/dL (3.5-5.0) Ethyl Alcohol < 10 mg/dL mg/dL (0-10) Departure - Departure Disposition: Home, Routine, Self-Care Clinical Impression: Observed seizure-like activity Condition: Good Instructions: Epilepsy (ED) Additional Instructions: Please return to the emergency department if your worse in any way. Referrals: [facility],. [Clinic] - As per Instructions
[2017-09-25 04:22] VITALS: BP 106/59; PULSE 83
== END 2017-09-25 04:21 | disposition home or self-care (01) ==
LOC: EDUNIT#
DX: G40.909 Epilepsy, unspecified, not intractable, without status epilepticus (principal); J45.909 Unspecified asthma, uncomplicated; F17.200 Nicotine dependence, unspecified, uncomplicated
CPT/HCPCS: G0480

== ENCOUNTER 2017-12-03 12:52 | Emergency (ER) | payer MEDICAID ==
--- NOTE | 2017-12-03 12:57 | EDPHY ---
HPI/HX/ROS/PE/MDM Narrative: CHIEF COMPLAINT: AMS, head injury, combative HPI: The patient is an approximately 48 y/o male arriving emergently via EMS for possible head injury and combativeness. History obtained from bystanders and then reported to EMS. Patient was sitting in the lobby of an [email or web address] store when he "made a whole bunch of noise" then fell forward onto his face. It' s unknown if there was seizure activity at that time. EMS found him initially with a reported GCS of 4. He became combative en route and EMS administered 2.5mg Versed for chemical restraint. Prehospital vitals were BP 150/palp, HR 90 , BGL 146. He is speaking upon arrival here, but has difficulty communicating his history or how he feels. He is shouting for help repeatedly. He denies medications or seizure history. Patient initially registered as a [facility]. Once updated, records show history of cerebral palsy, alcohol abuse, and alcohol withdrawal seizures. REVIEW OF SYSTEMS: Unable to obtain secondary to patient condition. PMH: cerebral palsy, alcohol abuse, and alcohol withdrawal seizures SOCIAL HISTORY: Smoker, homeless PHYSICAL EXAM: General:Patient is alert, somewhat combative, confused. HR 135, BP 95/66. Head: Left periorbital ecchymosis and swelling. ENT:Eyes are normal to inspection. Abrasion underneath nose with 1.5cm laceration to upper lip with swelling, cerumen impaction bilaterally without hemotympanum, ENT inspection otherwise normal. Neck: Normal inspection. C-collar in place. Respiratory:No respiratory distress. Breath sounds normal bilaterally. Cardiovascular: Tachycardic regular rate and rhythm. Strong peripheral pulses. Normal cap refill. Abdomen:The abdomen is nontender to palpation. There are no peritoneal signs. No signs of incontinence. Back: Normal to inspection. No tenderness to palpation. Old surgical scarring around sacrum. Skin: Normal color. No rash. Warm and dry. No trauma apart from facial injuries. Extremities: Normal appearance. Full range of motion. Neuro: Oriented x1, moving all extremities. Slurred speech. ED Course: RT at bedside. 1249: Dr. Rodriges, trauma surgeon, at bedside. 1252: Met EMS upon arrival and took report. This is an approximately 48 y/o male with no known medical history who presents with facial injuries and combativeness after a witnessed fall onto his face this afternoon. There may have been seizure activity at this time, but we are unable to confirm this. Initial exam shows periorbital ecchymosis and edema around left eye and abrasion under nose, no other visible trauma. He is moving all extremities and has slurred speech, but is disoriented and agitated. He denies any medical history, but history from him at this time is suspect due to altered mentation. IVs established, labs ordered, plan for STAT head CT. Patient reports his name is Emir Mauro. If accurate, admission record from 09/16 shows he has a history of cerebral palsy, alcohol abuse, and alcohol withdrawal seizures. 1300: 1mg IV Ativan and 4mg IV Zofran administered for sedation. 1309: Patient sent to CT for head and neck imaging. The 12 lead EKG was interpreted by myself. Sinus tachycardia rate 118. See hard copy and/or "[facility]emaster" electronic copy for interpretation. 1335: CTs are negative per radiology. C-spine cleared by imaging and c-collar removed by myself. Wound care by tech for 1.5cm upper lip laceration. Patient does not want sutures. Presentation is consistent with alcohol withdrawal seizure similar to prior ED visits and hospitalizations. CO2 is low at 14, which supports likely seizure and then postictal period causing patient's symptoms. Patient is now completely alert and oriented and acting appropriately. Exam remains unchanged. No new complaints. 875mg PO Augmentin and 25mg PO Librium administered here. Patient will be discharged with script for Keflex for infection prophylaxis and Librium prepack for withdrawal symptoms. Recommended following up with his PCP and at the [facility]. Return precautions discussed. Patient had an unsteady gait at discharge, but this sounds like it is his baseline secondary to cerebral palsy. - Data Points Imaging: Discussed imaging studies w/ yardage caller Radiologist, I viewed and interpreted images myself Laboratory Results: Laboratory Results 12/03/17 13:00 12/03/17 13:00 12/03/17 12/03/17 12/03/17 13: 13:00 12:53 WBC 9.67 10^3/uL H 10^3/uL (3.80-9.50) RBC 4.17 10^6/uL L 10^6/uL (4.40-6.38) Hgb 12.7 g/dL L g/dL (13.7-17.5) POC Hgb 13.3 gm/dL L gm/dL (13.7-17.5) Hct 38.5 % L % (40.0-51.0) POC Hct 39 % L % (40-51) MCV 92.3 fL fL (81.5-99.8) MCH 30.5 pg pg (27.9-34.1) MCHC 33.0 g/dL g/dL (32.4-36.7) RDW 13.2 % % (11.5-15.2) Plt Count 212 10^3/uL 10^3/uL (150-400) MPV 11.2 fL fL (8.7-11.7) Neut % (Auto) 77.8 % H % (39.3-74.2) Lymph % (Auto) 19.4 % % (15.0-45.0) [place] % (Auto) 1.4 % L % (4.5-13.0) Eos % (Auto) 0.1 % L % (0.6-7.6) Baso % (Auto) 0.5 % % (0.3-1.7) Nucleat RBC Rel Count 0.0 % % (0.0-0.2) Absolute Neuts (auto) 7.51 10^3/uL H 10^3/uL (1.70-6.50) Absolute Lymphs (auto) 1.88 10^3/uL 10^3/uL (1.00-3.00) Absolute Monos (auto) 0.14 10^3/uL L 10^3/uL (0.30-0.80) Absolute Eos (auto) 0.01 10^3/uL L 10^3/uL (0.03-0.40) Absolute Basos (auto) 0.05 10^3/uL 10^3/uL (0.02-0.10) Absolute Nucleated RBC 0.00 10^3/uL 10^3/uL (0-0.01) Immature Gran % 0.8 % % (0.0-1.1) Immature Gran # 0.08 10^3/uL 10^3/uL (0.00-0.10) POC Sodium 144 mEq/L mEq/L (135-145) Sodium 142 mEq/L mEq/L (135-145) POC Potassium 3.6 mEq/L mEq/L (3.3-5.0) Potassium 3.8 mEq/L mEq/L (3.5-5.2) POC Chloride 106 mEq/L mEq/L (97-110) Chloride 107 mEq/L mEq/L (97-110) Carbon Dioxide 14 mEq/l L mEq/l (22-31) Anion Gap 21 mEq/L H mEq/L (8-16) POC BUN 15 mg/dL mg/dL (7-23) BUN 14 mg/dL mg/dL (7-23) Creatinine 0.8 mg/dL mg/dL (0.7-1.3) POC Creatinine 0.7 mg/dL mg/dL (0.7-1.3) Estimated GFR > 60 Glucose 141 mg/dL H mg/dL (70-100) POC Glucose 147 mg/dL H mg/dL (70-100) Calcium 8.6 mg/dL mg/dL (8.5-10.4) Troponin I < 0.012 ng/mL ng/mL (0.000-0.034) Medications Given: Discontinued Medications Amoxicillin/Clavulanate Potassium (Augmentin 875mg) 875 mg PO EDNOW ONE PRN Reason: Protocol Stop: 12/03/17 14:12 Last Admin: 12/03/17 14:18 Dose: 875 mg Chlordiazepoxide HCl (Librium) 25 mg PO EDNOW ONE Stop: 12/03/17 14:15 Last Admin: 12/03/17 14:18 Dose: 25 mg Sodium Chloride (Ns) 1,000 mls @ 0 mls/hr IV EDNOW ONE; Wide Open PRN Reason: Protocol Stop: 12/03/17 13:13 Last Admin: 12/03/17 13:32 Dose: 1,000 mls Point of Care Test Results: 12/03/17 12:53 POC Sodium 144 POC Potassium 3.6 POC Chloride 106 POC BUN 15 POC Creatinine 0.7 POC Glucose 147 H General Initial Vital Signs: Initial Vital Signs Temperature (C) 36.3 C 12/03/17 13:02 Heart Rate 137 H 12/03/17 13:02 Respiratory Rate 16 12/03/17 13:02 Blood Pressure 95/66 L 12/03/17 13:02 O2 Sat (%) 99 12/03/17 13:02 O2 Delivery Mode Non-Rebreather Mask Allergies/Adverse Reactions: No Known Allergies Allergy (Unverified 12/03/17 13:01) Home Medications: Medication Instructions Recorded Cephalexin [Keflex] 500 mg PO TID #21 cap 12/03/17 Departure - Departure Disposition: Home, Routine, Self-Care Clinical Impression: Seizure, Periorbital hematoma of left eye Laceration of lip Qualifiers: Encounter type: initial encounter Qualified Code(s): S01.511A - Laceration without foreign body of lip, initial encounter Alcohol withdrawal Qualifiers: Complication of substance-induced condition: with unspecified complication Qualified Code(s): F10.239 - Alcohol dependence with withdrawal, unspecified Condition: Good Instructions: Cephalexin (By mouth), Laceration (ED), Recurrent Seizures in Adults (ED), Facial Contusion (ED) Additional Instructions: 1. Apply ice to sore areas intermittently over the next 24-48 hours. 2. Use ibuprofen or Tylenol as directed on the packaging as needed for pain. 3. Avoid abuse of alcohol. 4. Take Librium as prescribed for symptoms of alcohol withdrawal. Go directly to the [facility] if you want assistance detoxing from alcohol. 5. Follow up with your primary care provider in the next 2-3 days for reevaluation. 6. Return to the ED for worsening of condition. Referrals: [facility],. [Clinic] - As per Instructions [facility] 24 Hours [Outside] - As per Instructions Prescriptions: Cephalexin [Keflex] 500 mg PO TID #21 cap Report Scribed for: Sid Julian Report Scribed by: Rachel Cardenas Date of Report: 12/03/17 Time of Report: 12:48 Physician Review and Approval Statement: Portions of this note were transcribed by an ED scribe. I personally performed the history, physical exam, and medical decision making; and confirm the accuracy of the information in the transcribed note.
[2017-12-03] MEDS ORDERED: LORazepam 2 MG/ML INJ ONE ×2 (13:01→13:06)
[2017-12-03 13:05] VITALS: BP 95/66; PULSE 137; RESP 16; TEMP 97.3; O2SAT 99
[2017-12-03] MEDS ORDERED: NS 1,000 ML IV ONE (13:12)
[2017-12-03 13:20] LABS: PLATELET COUNT 212 10^3/uL (150-400)
--- NOTE | 2017-12-03 14:07 | CPEKG ---
Heart Rate: 118 RR Interval: 508 P-R Interval: 144 QRSD Interval: 82 QT Interval: 320 QTC Interval: 449 P [place]: 65 QRS [place]: 84 T Wave [place]: 48 EKG Severity - ABNORMAL ECG - EKG Impression: SINUS TACHYCARDIA EKG Impression: LOW VOLTAGE IN FRONTAL LEADS EKG Impression: CONSIDER ANTEROSEPTAL INFARCT Electronically Signed By: Jermain Brush 06-Dec-2017 14:38:36
[2017-12-03] MEDS ORDERED: AMOXICILLIN/CLAVULANATE POT 875/125 MG TAB PO ONE (14:11)
[2017-12-03] MEDS ORDERED: chlordiazePOXIDE 25 MG CAP PO ONE (14:14)
--- NOTE | 2017-12-03 14:48 | GCON ---
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 He did not have an appointment. He apparently stood up and then abruptly fell over on his face. He was brought to the hospital as a full trauma. He arrived, and he was evaluated by both Dr. Julian and myself. He was vocal. His airway was grossly clear. His breathing was unencumbered. He had a small laceration on his upper lip. His speech was somewhat garbled. We were able to locate an old chart and understand he does have CP. He has been previously admitted with alcoholic withdrawal and seizures thought to be secondary to alcoholic withdrawal. PHYSICAL EXAMINATION: HEAD-TO-TOE: Shows skull which was normocephalic. There was ecchymosis on the left upper eyelid and slight swelling. His cranial nerves appear to be intact. He had a laceration transversely in the midportion of his upper lip going slightly inside. NEUROLOGIC: He is moving all extremities. He would move them to command. He complained of no distinct pain except where we were restraining him. Pupils are equal, reactive to light and accommodation. Extraocular movements intact. There is no Yang sign. Tympanic membranes were not visualized due to intense cerumen packing. He had a small laceration on the inside of his upper lip. Nothing was through and through. His teeth were stable. NECK: Nontender. UPPER EXTREMITIES: Unremarkable. CHEST: Stable to AP and lateral compression. Breath sounds are equal. CARDIAC: Shows S1, S2 to be normal. ABDOMEN: Soft, nontender. PELVIS : Stable to AP and lateral compression. LOWER EXTREMITIES: Unremarkable. BACK: He was rolled to examine his back. There was no obvious injury and it was palpably normal. There is an old scar (with some stretching) over the sacrum. Full history is gleaned from the chart as mentioned above. He has had a posterior occipital craniectomy in the past. He has an old left-sided occipital skull fracture. 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 His C-spine, aside for some compression changes which were old, showed no acute changes. His saturations are 99%, his respirations are 18, pulse is 124, blood pressure is 110/76. His glucose was 147. Laboratories were unexciting. He had received Zofran 4 mg. He received Versed 4 mg of the field and Ativan 2 mg in the ER. He was taken to CAT scan and the above-mentioned findings were detected. PLAN: There was no acute injury. Dr. Julian has assumed care and the patient is deciding whether he wants to have anything done about his upper lip laceration. /[id number]/MODL [id number]
[2017-12-03] MEDS ORDERED: NICOTINE POLACRILEX 2 MG GUM B PRN (14:54)
[2017-12-03] MEDS ORDERED: NICOTINE POLACRILEX 2 MG GUM B ONE (14:55)
--- NOTE | 2017-12-03 20:47 | ASDISCHSUM ---
Discharge Information Plan Status:Homeless/Snf Medically Cleared to Leave: Discharge Date:12/03/2017 04:10 PM CM D/C Disposition:Streets (Homeless) ADT D/C Disposition:Home, Routine, Self-Care Projected Discharge Date:12/03/2017 04:10 PM Transportation at D/C:None or Unknown Discharge Delay Reason: Follow-Up Date:12/03/2017 04:10 PM Discharge Slot: Final Diagnosis: Placement Information Patient Contact Information Contact Name:STEPHANIE Relationship:Other Address: Work Phone: City: [facility] Phone: State/Zip Code: Email: Financial Information Financial Class: Primary Plan Desc:MEDICAID [facility] 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 Patient was combative en route with EMS. Patient is homeless and was a eyeglass store to have his glasses repaired when it appears he might have had a seizure. Patient has a history of ETOH use and there are concerns he experienced an ETOH withdrawal seizure. This CM offered to contact anyone (including his listed Emergency Contact) but pt declined. Spoke with Dania Alexander at [facility] and he is a current patient there, last visit was yesterday with Milla Guzmán. Patient not able or willing to discuss any other matters, "just want my cigarettes." CM available for further assistance if needed. Date Signed: 12/03/2017 08:45 PM Electronically Signed By:Mitzy Sheppard RN CAGE Questionnaire Date Signed: 12/03/2017 08:46 PM Electronically Signed By:Mitzy Sheppard RN Intervention Information
== END 2017-12-03 16:10 | disposition home or self-care (01) ==
LOC: EDBD 12:52 → MERGE 12:52
DX: S01.511A Laceration without foreign body of lip, initial encounter (principal); G40.909 Epilepsy, unspecified, not intractable, without status epilepticus; F10.239 Alcohol dependence with withdrawal, unspecified; E86.9 Volume depletion, unspecified; F17.200 Nicotine dependence, unspecified, uncomplicated; W19.XXXA Unspecified fall, initial encounter
CPT/HCPCS: 82947-QW; J2060

== ENCOUNTER 2018-01-13 09:25 | Emergency (ER) | payer MEDICAID ==
[2018-01-13 09:35] VITALS: BP 129/87; PULSE 85; RESP 16; O2SAT 100
[2018-01-13 10:02] VITALS: TEMP 97.7
--- NOTE | 2018-01-13 10:05 | EDPHY ---
H & P Stated Complaint: dificulty walking Time Seen by Provider: 01/13/18 09:45 HPI/ROS: Chief Complaint: Difficulty walking HPI: A 42-year-old homeless male with a history of spina bifida presenting complaining of increased difficulty walking for the last 8 weeks. Patient states he is able to ambulate but he is gait is significantly different than usual. He is following occasionally. He has not followed up with primary care physician. He has not had any significant changes in the last 8 weeks. No numbness or weakness. No head injuries. Denies drinking alcohol. He took the bus here was able to walk from the bus stop to the emergency department without any difficulties. No urinary urgency or frequency. No constipation or loss of stool. ROS: 10 point Review of Systems is negative except as noted in the HPI. Social History: Positive smoking, denies alcohol Family History: non-contributory Physical Exam: Gen: Awake, Alert, No Distress, patient is able to ambulate out of his room down the hallway and back. There is some mild gait disturbance but no falls. HEENT: Nose: no rhinorrhea Eyes: PERRLA, EOMI Mouth: Moist mucosa Neck: Supple, no JVD Chest: nontender, lungs clear to auscultation Heart: S1, S2 normal, no murmur Abd: Soft, non-tender, no guarding Back: no CVA tenderness, no midline tenderness Ext: no edema, non-tender Skin: no rash Neuro: CN II-XII intact, Sensation grossly intact, Strength 5/5 in bilateral upper and lower extremities - Personal History Current Tetanus/Diphtheria Vaccine: No Current Tetanus Diphtheria and Acellular Pertussis (TDAP): No - Medical/Surgical History Hx Asthma: No Hx Chronic Respiratory Disease: No Hx Diabetes: No Hx Cardiac Disease: No Hx Renal Disease: No Hx Cirrhosis: No Hx Alcoholism: No Hx HIV/AIDS: No Hx Splenectomy or Spleen Trauma: No Other PMH: pmh:spina bifida - Social History Smoking Status: Current every day smoker Constitutional: Initial Vital Signs Heart Rate 85 01/13/18 09:31 Respiratory Rate 16 01/13/18 09:31 Blood Pressure 129/87 H 01/13/18 09:31 O2 Sat (%) 100 01/13/18 09:31 O2 Delivery Mode Room Air Allergies/Adverse Reactions: No Known Allergies Allergy (Verified 01/13/18 09:31) Medical Decision Making ED Course/Re-evaluation: 42-year-old homeless male presenting complaining of not being able to ambulate. Patient has had persistent symptoms for the last 8 weeks. Otherwise neurologically intact. He is ambulating in the emergency department. No acute changes. Does have a history of spina bifida in the past. Will refer for follow-up as an outpatient. No indication for emergent imaging or workup at this time. Departure - Departure Disposition: Home, Routine, Self-Care Clinical Impression: Gait abnormality Condition: Good Instructions: Fall Prevention (ED) Additional Instructions: Follow up with [facility] in 2-3 days for further evaluation. Follow up with Neurology within 4-5 days for further evaluation. Return to the emergency department for increasing falls, headache, numbness, difficulty urinating, or any other concerns. Referrals: [facility],. [Clinic] - As per Instructions Osorio Mansfield MD [Medical Doctor] - As per Instructions
== END 2018-01-13 10:37 | disposition home or self-care (01) ==
DX: R26.9 Unspecified abnormalities of gait and mobility (principal); F17.200 Nicotine dependence, unspecified, uncomplicated

== ENCOUNTER 2018-08-04 13:04 | Emergency (ER) | payer MEDICAID ==
[2018-08-04 13:17] VITALS: BP 108/73
--- NOTE | 2018-08-04 13:18 | EDPHY ---
H & P Time Seen by Provider: 08/04/18 13:06 HPI/ROS: CHIEF COMPLAINT: "I need emergency surgery" HISTORY OF PRESENT ILLNESS: History and physical and discharge summary reviewed from his admission to our hospital from 06/17-06/18/2018. This patient is a history of spina bifida and Chiari malformation with previous surgery. According to the chart, a review of [facility] showed this apparently was in 2012, although the patient tells me it was 3 weeks ago or 2 months ago or 6 months ago had various times during the interview today. He tells me it may be was University or maybe was at [employer]. According to his history and physical from May he was at [employer] in April with similar symptoms. Patient tells me he has severe dizziness and nausea and difficulty walking. According to the chart the symptoms really have been progressive since 2011. He was admitted to the hospital for overnight and was discharged with referral to [facility]. He says the nausea is severe, dizziness is severe but intermittent. Not associated with headache or trouble with speech or weakness or numbness in extremities. Per EMS the patient was able to ambulate to the [facility]. REVIEW OF SYSTEMS: Eye: no change in vision ENT: no sore throat Cardiac: no chest pain or syncope Pulmonary: no cough or SOB Abdomen: no vomiting, diarrhea, abdominal pain Musculoskeletal: no back pain Skin: no rash Neuro: no headache Constitutional: no fever : no urinary symptoms A comprehensive 10 point review of systems is otherwise negative aside from elements mentioned in the history of present illness. PAST MEDICAL HISTORY: Includes as above, Chiari malformation. Decompression in 2012. Remote history of traumatic subdural. History of seizure. History of tethered cord with spina bifida surgery in 2008. Guy fundoplication. Social history: Tobacco smoker, homeless. Patient denies alcohol but was admitted at [facility] in 2017 for alcohol withdrawal. General Appearance: Alert and conversant, cooperative. Eyes: No scleral icterus. Pupils equal reactive extraocular motion intact. ENT, Mouth: Normal mucous membranes. Respiratory: Normal respiratory effort, breath sounds equal, lungs are clear to auscultation. Cardiovascular: Regular rate and rhythm. Gastrointestinal: Abdomen is soft and non tender. Neurological: Alert, face symmetric, normal motor and sensory in extremities. No truncal ataxia, patellar reflexes 3+ symmetric. Good strength in all extremities. Extraocular motion intact without nystagmus. Normal finger-to- nose bilaterally without pronator drift. Skin: Warm and dry, no rashes. Musculoskeletal: No peripheral edema. Psychiatric: Not agitated. Emergency Department course/MDM: Patient was offered Zofran ODT for his nausea. He needs neurology follow-up. He is insistent that he needs "emergency Chiari surgery for my spine" and is offered referral to Neurosurgery in the office to discuss any further procedures that he thinks he might need. At this point I do not think he has indications for emergency neurosurgery or admission to the hospital. Smoking Status: Current every day smoker Constitutional: Initial Vital Signs Temperature (C) 36.7 C 08/04/18 13:13 Heart Rate 84 08/04/18 13:13 Respiratory Rate 18 08/04/18 13:13 Blood Pressure 108/73 08/04/18 13:13 O2 Sat (%) 100 08/04/18 13:13 O2 Delivery Mode Room Air Allergies/Adverse Reactions: No Known Allergies Allergy (Verified 06/17/18 13:10) Home Medications: Medication Instructions Recorded Ondansetron Odt [Zofran Odt] 4 mg PO Q4PRN #6 tab 08/04/18 Medical Decision Making - Data Points Medications Given: Discontinued Medications Ondansetron HCl (Zofran Odt) 4 mg PO EDNOW ONE Stop: 08/04/18 13:20 Last Admin: 08/04/18 13:24 Dose: 4 mg Departure - Departure Disposition: Home, Routine, Self-Care Clinical Impression: Dizziness, Nausea Condition: Good Instructions: Acute Nausea and Vomiting (ED) Referrals: Terry Cantu MD [Medical Doctor] - As per Instructions [facility],. [Clinic] - As per Instructions Prescriptions: Ondansetron Odt [Zofran Odt] 4 mg PO Q4PRN #6 tab
[2018-08-04] MEDS ORDERED: ONDANSETRON DISINTEGRATING 4 MG TAB PO ONE (13:19)
--- NOTE | 2018-08-04 15:18 | ASMTCMCOM ---
CM Note CM Note Notes: Patient is known to this CM from previous ER visits (see CM note 05/29/18). I have faxed current ER report/referral to Dr. Cantu (neurosurgery) and have contacted Ayaka (Homeless outreach RN) at [facility]. Ayaka re-confirms that patient has had follow up with [facility] in the past, but has not been compliant with this. Ayaka is aware of patient visits to Neurology at [facility] and that there was no follow up indicated. I have faxed today's ER report to Ayaka and she is aware of the Neurosurgical consult requested by patient and that I have sent this referral to Dr. Cantu. The Patient remains current at [facility] and Ayaka will continue to reach out to and follow patient Date Signed: 08/04/2018 03:17 PM Electronically Signed By:Karen Lancaster RN
[2018-08-05] MEDS ORDERED: HEPARIN 1000 UNIT/1 ML MDV ONE (07:05)
[2018-08-05] MEDS ORDERED: BUPIVACAINE 0.5% 30 ML SDV ONE (07:05)
[2018-08-05] MEDS ORDERED: ceFAZolin 1 GM/5 ML SYR ONE (07:06)
== END 2018-08-04 14:00 | disposition home or self-care (01) ==
LOC: EDUNIT#
DX: R42 Dizziness and giddiness (principal); R11.0 Nausea; Q05.9 Spina bifida, unspecified; F17.200 Nicotine dependence, unspecified, uncomplicated

== ENCOUNTER 2018-10-24 13:42 | Emergency (ER) | payer MEDICAID ==
--- NOTE | 2018-10-24 14:17 | EDPHY ---
H & P Stated Complaint: Dizziness x 7 months worse tonav, chiari malformation repaired 7 months ago Time Seen by Provider: 10/24/18 14:16 HPI/ROS: HPI: This is a 43-year-old male who presents with Chief Complaint: Dizziness x 7 months worse today, Chiari malformation repaired 7 months ago Location: Head Quality: Dizziness, nausea Duration: 7 months Signs and Symptoms: no fever,+ nausea, no vomiting, no photophobia, no noise sensitivity, no neck stiffness, no ear pain, no tinnitus, no nasal congestion, no sinus pressure, no weakness, no radiation, no aura Timing: Worse today Severity: Mild Context: Patient is homeless, presents with complaints of nausea and dizziness over the last 7 months. He reports that he had a Chiari malformation repaired 7 months ago and since that time he has had daily nausea and dizziness that is not improved or worsened by any activity. Patient then reports to me that he needs to be discharged from the emergency room immediately to get back to the detention before it closes. Patient was able to ambulate in the emergency room triage area per the nurse without any difficulty. Patient denies any recent head injury or trauma. Chart review shows that patient was here in July with a similar complaint. Patient reports that he never followed up with Neurology. After further questioning patient reports that he ate breakfast without difficulty. He denies any abdominal pain, vomiting, diarrhea, fever, urinary symptoms. Patient reports that his dizziness has not worsened over the last 7 months and remained stable. Modifying Factors: None Comment: ROS: A comprehensive 10 system review of systems is otherwise negative aside from elements mentioned in the history of present illness. 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 Homeless. Family history noncontributory. CONSTITUTIONAL: Nontoxic middle-aged white male, awake and alert, no obvious distress HEENT: Atraumatic and normocephalic, PERRL, EOMI. Nares patent; no rhinorrhea; no nasal mucosal edema. Tympanic membranes clear. Oropharynx clear, no exudate and moist pink mucosa. Airway patent. No lymphadenopathy. No meningismus. Cardiovascular: Normal S1/S2, regular rate, regular rhythm, without murmur rub or gallop. PULMONARY/CHEST: Symmetrical and nontender. Clear to auscultation bilaterally. Good air movement. No accessory muscle usage. ABDOMEN: Soft, nondistended, nontender, no rebound, no guarding, no peritoneal signs, no masses or organomegaly. No CVAT. BACK: Thoracic kyphoscoliosis, no midline tenderness EXTREMITIES: 2/2 pedal pulses, strength 5/5, no deformities, no clubbing, no cyanosis or edema. NEUROLOGICAL: no focal neuro deficits. GCS 15. SKIN: Warm and dry, no erythema. no rash. Good capillary refill. Repeats himself PSYCH: Poor eye contact, + flight of ideas, tangential disorganized thought process, poor insight and judgment Source: Patient Exam Limitations: No limitations - Medical/Surgical History Hx Asthma: No Hx Chronic Respiratory Disease: No Hx Diabetes: No Hx Cardiac Disease: No Hx Renal Disease: No Hx Cirrhosis: No Hx Alcoholism: Yes Hx HIV/AIDS: No Hx Splenectomy or Spleen Trauma: No Other PMH: pmh:spina bifida - Social History Smoking Status: Current every day smoker Constitutional: Initial Vital Signs Temperature (C) 37.0 C 10/24/18 13:57 Heart Rate 86 10/24/18 13:57 Respiratory Rate 18 10/24/18 13:57 Blood Pressure 113/80 10/24/18 13:57 O2 Sat (%) 97 10/24/18 13:57 O2 Delivery Mode Room Air Allergies/Adverse Reactions: No Known Allergies Allergy (Verified 06/17/18 13:10) Home Medications: Medication Instructions Recorded Ondansetron Odt [Zofran Odt 4 mg 4 mg PO Q4 PRN #12 tab 10/24/18 (*)] Medical Decision Making ED Course/Re-evaluation: Vital signs reviewed and stable upon arrival. No LOC and no neurological deficits. Patient's abdomen is soft and nontender and I doubt surgical process or need for imaging. Patient was given a Zofran prepack for his nausea and referral for Neurology follow-up. Drinking juice without difficulty at bedside. Counseled patient that emergency surgery for his Chiari malformation is not indicated at this time. This patient was seen under the supervision of my secondary supervising physician. I evaluated care for this patient with my attending. Discussed this patient with Dr. Pickering. Differential Diagnosis: Dizziness including but not limited to peripheral and central causes of vertigo , orthostatic causes including dehydration, and blood loss. - Data Points Medications Given: Discontinued Medications Ondansetron HCl (Zofran Odt 4 Mg Prepack#2) 1 btl MADELYN FISCHER ONE Stop: 10/24/18 14:24 Last Admin: 10/24/18 14:29 Dose: 1 btl Departure - Departure Disposition: Home, Routine, Self-Care Clinical Impression: Nausea alone, Dizziness Condition: Good Instructions: Acute Nausea and Vomiting (ED), Dizziness (ED) Additional Instructions: Consume a minimum of 8-10 glasses of water or electrolyte fluid replacement drinks that include Gatorade, Powerade, Pedialyte. Eat a bland diet for the next 48 hours and then slowly advance as tolerated. Take Zofran 1 tab every 4 hours as needed for nausea, vomiting. Follow-up with Neurology in the next 1-2 weeks. Return to the Emergency Room if symptoms do not resolve in the next 48-72 hours , you spike a fever > 102 F, or experience intractable abdominal pain/nausea/ vomiting. Referrals: [facility],. [Clinic] - As per Instructions Arin Tyson DO [Doctor of Osteopathy] - As per Instructions Prescriptions: Ondansetron Odt [Zofran Odt 4 mg (*)] 4 mg PO Q4 PRN #12 tab PRN Reason: Nausea/Vomiting, Use 1st
[2018-10-24] MEDS ORDERED: ONDANSETRON 4MG PREPACK#2 BTL TAKEHOME ONE (14:23)
[2018-10-24] MEDS ORDERED: ONDANSETRON DISINTEGRATING 4 MG TAB ONE (14:27)
[2018-10-24] MEDS ORDERED: ONDANSETRON DISINTEGRATING 4 MG TAB PO ONE (14:28)
[2018-10-24 14:37] VITALS: BP 108/78
== END 2018-10-24 14:36 | disposition home or self-care (01) ==
DX: R42 Dizziness and giddiness (principal); R11.0 Nausea; Z59.0 Homelessness

== ENCOUNTER 2019-01-18 14:06 | Emergency (ER) | payer MEDICAID ==
[2019-01-18 14:12] VITALS: BP 117/67
--- NOTE | 2019-01-18 14:22 | EDPHY ---
General Time Seen by Provider: 01/18/19 14:13 Narrative: CLINICAL IMPRESSION: Cerumen impaction left ear ASSESSMENT/PLAN: 43-year-old homeless male presents to the emergency department with 2 days of decreased hearing out of the left ear. On exam patient has cerumen impaction to the left ear that was irrigated out using warm water and soap. Patient tolerated well. Repeat exam shows no TM perforation, otitis media, or external auditory canal laceration. Follow up with PCP. Warning signs return to ED outlined discharge. DIFFERENTIAL DX: Differential includes but not limited to cerumen impaction, foreign body, acute otitis media, serous otitis media, TM perforation, sensorineural hearing loss ED PROCEDURES: See lab and/or imaging results below Cerumen was irrigated from the left ear using a warm soapy water irrigation. No evidence of TM perforation, otitis media, or external auditory canal laceration on reassessment. CHIEF COMPLAINT: Trouble hearing out of the left ear HPI: 43-year-old homeless male presents to the emergency department with complaints of decreased hearing out of the left ear for the last 2 days. 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 He now states "I feel stone cold deaf". No discharge, bleeding, pain, fever, chills or URI symptoms. He has been trying hydrogen peroxide in the ear. PAST MEDICAL HISTORY: Spina bifida, chronic hearing loss to right ear See triage summary and nurse notes for addition applicable history Pertinent Past Surgical History: None reported Family History: None reported Social History: Homeless, smoker REVIEW OF SYSTEMS: A full 10 point review of systems was negative except for those mentioned in HPI. PHYSICAL EXAM: General Appearance: Alert, oriented, appropriate, cooperative, NAD, well hydrated, non-toxic appearing, VSS, no hypoxia. HEENT: Occluded left panic membrane secondary to cerumen. Normal appearing right external auditory canal. Oropharynx clear is no erythema or exudates, no tonsillar hypertrophy or asymmetry. Dentition without abnormality. Skin: Warm, dry, no rashes, no nodules on palpation. MEDICAL DECISION MAKING: Patient was seen independently. Secondary supervising physician at time of evaluation was: Dr. Pickering . Diagnosis: Cerumen impaction. New, requires workup Summary: See Assessment and Plan for summary of ED visit Patient Progress: Stable for discharge. - History Smoking Status: Current every day smoker - Objective Vital Signs: Initial Vital Signs Temperature (C) 36.9 C 01/18/19 14:07 Heart Rate 92 01/18/19 14:07 Respiratory Rate 18 01/18/19 14:07 Blood Pressure 117/67 01/18/19 14:07 O2 Sat (%) 97 01/18/19 14:07 O2 Delivery Mode Room Air Allergies/Adverse Reactions: No Known Allergies Allergy (Verified 06/17/18 13:10) Home Medications: Medication Instructions Recorded NK [No Known Home Meds] 01/18/19 Departure - Departure Disposition: Home, Routine, Self-Care Clinical Impression: Impacted cerumen of left ear Condition: Good Instructions: Cerumen Impaction (ED) Additional Instructions: DISCHARGE INSTRUCTIONS FROM YOUR DOCTOR Thank you for visiting our emergency department today. You were treated by a physician academic support assistant today and your case was reviewed with our ED Attending physician. Please keep in mind that discharge from the emergency department does not mean that there is nothing wrong - it simply means that we have not identified an emergency condition that requires further evaluation or treatment in the hospital. You should always plan to follow up with primary care for re- evaluation of your condition in the next 2-3 days. If you have been referred to a specialist, please call as soon as possible (today or tomorrow) to schedule your follow up appointment at the appropriate time. [WAX WAS REMOVED FROM THE LEFT EAR CANAL WITHOUT DIFFICULTY. EARDRUM IS INTACT , NO SIGNS OF INFECTION OR PERFORATION TO THE EAR CANAL. PLEASE AVOID USING Q- TIPS OR EAR PLUGS TO THE EAR. FOLLOW UP WITH PRIMARY CARE INDICATED. ] People present with illnesses and injuries in different ways, and it is always possible that we have missed something. You may always return for re-evaluation if symptoms worsen or if they are not improving or if you develop new/different symptoms. Again, thank you for choosing our emergency department. We hope that you feel better. Referrals: Patient,NotPresent [Unknown] - As per Instructions [facility],. [Clinic] - 1-2 days without fail
== END 2019-01-18 14:57 | disposition home or self-care (01) ==
PROC: 3E1B78Z Irrigation of Ear using Irrigating Substance, Via Natural or Artificial Opening (ICD-10-PCS; principal; 2019-01-18)
DX: H61.22 Impacted cerumen, left ear (principal); Z59.0 Homelessness; Z86.69 Personal history of other diseases of the nervous system and sense organs

== ENCOUNTER 2019-03-29 11:45 | Emergency (ER) | payer MEDICAID | END 2019-03-29 12:43 | disposition home or self-care (01) ==